=== PATIENT | male | born 1950 | race Caucasian/White ===

== ENCOUNTER → 2018-02-20 | Outpatient (CLI) | payer MEDICARE ==
--- NOTE | 2018-02-20 07:59 | US ---
EXAMINATION TYPE: US duplex aorta DATE OF EXAM: 02/20/2018 COMPARISON: NONE CLINICAL HISTORY: Z13.6 Screening for cardiovascular disease. controlled HTN EXAM MEASUREMENTS: Exam is technically limited by overlying bowel gas and large body habitus. Abdominal Aorta: Proximal: 2.9cm A/P by 2.5 cm transversely. Mid: 2.1cm A/P by 2.1 cm transversely Distal: 2.1cm A/P by 2.0 cm transversely Bifurcation: 1.5cm Transverse Right SHARMIN; 1.4cm Transverse Left SHARMIN Aorta is scanned through the bifurcation without aneurysmal change. IMPRESSION: No ultrasound evidence for greater than 3 cm abdominal aortic aneurysm.
== END | disposition home or self-care (01) ==
LOC: RADUSWWP 07:18
PROVIDERS: ATTEND Family Medicine
DX: Z13.6 Encounter for screening for cardiovascular disorders (principal)
CPT/HCPCS: 93979

== ENCOUNTER → 2018-03-05 | Outpatient (CLI) | payer MEDICARE ==
--- NOTE | 2018-03-05 11:03 | CTL ---
EXAMINATION TYPE: CT Low Dose Lung DATE OF EXAM ORDERED: 03/05/2018 HISTORY: Long-term tobacco use. Lung cancer screening CT DLP: 138.[address] CTDI: 4.2 mGy Automated exposure control for dose reduction was used. SCREENING VISIT: Initial screening study. COMPARISON: None TECHNIQUE: Low dose computed tomography scan was performed through the chest at 1 mm thick sections a nd reconstructed images in the coronal plane at [address] DIAGNOSTIC QUALITY: Satisfactory FINDINGS: LUNG NODULES: None. Few scattered micronodules measuring under 3 mm in size LUNGS: COPD: Severity: Mild Fibrosis: Severity: Mild bibasilar linear scarring Lymph nodes: No greater than 1 cm adenopathy Other findings: None BILATERAL PLEURAL SPACE: Effusion: None Calcification: None Thickening: None Pneumothorax: None HEART: Heart Size: Normal Coronary calcification: Moderate to severe 3 vessel Pericardial effusion: None OTHER FINDINGS: Upper abdomen: None Bony thorax: Mild multilevel spurring. Slight S-shaped scoliosis. Supraclavicular region: No suspicious finding. Other: None IMPRESSION: No suspicious nodules. FOLLOW UP CT CHEST RECOMMENDATION: Annual low-dose lung screening CT. Moderate to severe coronary art jeanne calcification noted. Correlate clinically with additional cardiovascular risk factors. CT LUNG RAD: Lung-Rad 1 Negative
== END | disposition home or self-care (01) ==
LOC: RADCTMAIN 07:34
PROVIDERS: ATTEND Family Medicine
DX: Z09 Encounter for follow-up examination after completed treatment for conditions other than malignant neoplasm (principal); Z87.891 Personal history of nicotine dependence

== ENCOUNTER 2018-07-14 15:16 | Inpatient (IN) | payer MEDICARE ==
[2018-07-14] MEDS ORDERED: SODIUM CHLORIDE 0.9% 1,000 ML IV STA (16:59)
[2018-07-14] MEDS ORDERED: ASPIRIN 81 MG PO STA (16:59)
--- NOTE | 2018-07-14 17:03 | ED ---
General Adult HPI - General Chief complaint: Recheck/Abnormal Lab/Rx Stated complaint: Dizziness Time Seen by Provider: 07/14/18 16:51 Source: patient, family, RN notes reviewed Mode of arrival: wheelchair Limitations: no limitations - History of Present Illness Initial comments: Patient is a pleasant 68-year-old male presenting to the emergency department for lightheadedness. Patient states he was an appointment today and have blood work done and was lightheaded. Blood pressure went down. Patient was noticed to have EKG changes and was advised to come to the emergency department. Patient denies ever having chest discomfort or dyspnea. Patient states symptoms are mild at this point. Patient has been experiencing anorexia recently and his doctor's planning on working that up in the near future - Related Data Home Medications Medication Instructions Recorded Confirmed Cholecalciferol [Vitamin D3] 5,000 unit PO DAILY 05/31/15 07/14/18 Anastrozole [Arimidex] 1 mg PO MOWEFR 07/14/18 07/14/18 Furosemide [Lasix] 40 mg PO DAILY 07/14/18 07/14/18 HYDROcodone/APAP 7.5-325MG [[place] 1 tab PO Q6H PRN 07/14/18 07/14/18 7.5-325] Lisinopril-Hctz 10-12.5 mg 1 tab PO DAILY 07/14/18 07/14/18 [Zestoretic 10-12.5] Naproxen Sodium 550 mg PO Q12H 07/14/18 07/14/18 Previous Rx's Medication Instructions Recorded Aspirin 81 mg PO DAILY #1 chewable 06/04/15 Metoprolol Tartrate [Lopressor] 25 mg PO TID #90 tab 06/04/15 Spironolactone [Aldactone] 25 mg PO DAILY #30 tab 06/04/15 Allergies Allergy/AdvReac Type Severity Reaction Status Date / Time No Known Allergies Allergy Verified 07/14/18 17:11 Review of Systems ROS Statement: Those systems with pertinent positive or pertinent negative responses have been documented in the HPI. ROS Other: All systems not noted in ROS Statement are negative. Constitutional: Denies: fever Eyes: Denies: eye pain ENT: Denies: ear pain Respiratory: Denies: cough, dyspnea Cardiovascular: Denies: chest pain Endocrine: Denies: heat or cold intolerance Gastrointestinal: Denies: vomiting Genitourinary: Denies: dysuria Musculoskeletal: Denies: back pain Skin: Denies: rash Neurological: Denies: weakness Past Medical History Past Medical History: Atrial Fibrillation, Heart Failure, COPD, Hypertension, Musculoskeletal Disorder, Osteoarthritis (OA) Additional Past Medical History / Comment(s): chronic lower back pain, herniated disc. History of Any Multi-Drug Resistant Organisms: None Reported Past Surgical History: Appendectomy, Heart Catheterization, Orthopedic Surgery Additional Past Surgical History / Comment(s): shattered lt ankle(hardware removed), vasectomtomy, colonoscopy w/polyps removed. Past Anesthesia/Blood Transfusion Reactions: No Reported Reaction Additional Past Anesthesia/Blood Transfusion Reaction / Comment(s): claustrophobic. Past Psychological History: No Psychological Hx Reported Smoking Status: Current every day smoker Past Alcohol Use History: None Reported Past Drug Use History: None Reported - Past Family History Father Family Medical History: Myocardial Infarction (DC) Additional Family Medical History / Comment(s): at age 86 Mother Family Medical History: Cancer, Congestive Heart Failure (CHF), Diabetes Mellitus, Myocardial Infarction (DC), Pneumonia Additional Family Medical History / Comment(s): at age 59 General Exam Limitations: no limitations General appearance: alert, in no apparent distress Head exam: Present: atraumatic Eye exam: Present: normal appearance, PERRL ENT exam: Present: normal oropharynx Neck exam: Present: normal inspection Respiratory exam: Present: normal lung sounds bilaterally. Absent: chest wall tenderness Cardiovascular Exam: Present: irregular rhythm Expanded Peripheral pulses: 2+: Radial (R), Radial (L), Posterior Tibialis (R), Posterior Tibialis (L) GI/Abdominal exam: Present: soft. Absent: distended, tenderness Extremities exam: Present: normal inspection. Absent: pedal edema, calf tenderness Neurological exam: Present: alert Psychiatric exam: Present: normal affect, normal mood Skin exam: Present: normal color Course Vital Signs 07/14/18 07/14/18 16:19 16:59 Temperature 97.7 F Pulse Rate 76 90 Respiratory 16 18 Rate Blood Pressure 71/50 93/57 O2 Sat by Pulse 97 99 Oximetry EKG Findings - EKG Comments: EKG Findings:: Normal sinus rhythm at 77. CT 178. QRS 128. QT 392. QTC 443. Normal axis. Right bundle branch block. Inferior T wave inversion. There is also T wave inversion leads V3 through V4. Medical Decision Making - Medical Decision Making Patient reevaluated and resting comfortably in bed. Patient and family updated on results and plan. Case was discussed in detail with Dr. Cohen, who will admit covering for Dr. casarez, who admits for Dr. Coronel. Patient states she has been told there is been some borderline hyponatremia in the past. - Lab Data Result diagrams: 07/14/18 16:50 07/14/18 16:50 Lab Results 07/14/18 07/14/18 07/14/18 Range/Units 16:50 16:50 16:50 WBC 10.5 (3.8-10.6) k/uL RBC 4.87 (4.30-5.90) m/uL Hgb 14.5 (13.0-17.5) gm/dL Hct 43.6 (39.0-53.0) % MCV 89.6 (80.0-100.0) fL MCH 29.8 (25.0-35.0) pg MCHC 33.2 (31.0-37.0) g/dL RDW 13.2 (11.5-15.5) % Plt Count 353 (150-450) k/uL Neutrophils % 79 % Lymphocytes % 10 % Monocytes % 9 % Eosinophils % 1 % Basophils % 0 % Neutrophils # 8.3 H (1.3-7.7) k/uL Lymphocytes # 1.0 (1.0-4.8) k/uL Monocytes # 1.0 (0-1.0) k/uL Eosinophils # 0.1 (0-0.7) k/uL Basophils # 0.0 (0-0.2) k/uL PT (9.0-12.0) sec INR (<1.2) APTT (22.0-30.0) sec Sodium 119 L* (137-145) mmol/L Potassium 5.0 (3.5-5.1) mmol/L Chloride 79 L* (98-107) mmol/L Carbon Dioxide 26 (22-30) mmol/L Anion Gap 14 mmol/L BUN 42 H (9-20) mg/dL Creatinine 1.20 (0.66-1.25) mg/dL Est GFR (CKD-EPI)AfAm 71 (>60 ml/min/1.73 sqM) Est GFR (CKD-EPI)NonAf 62 (>60 ml/min/1.73 sqM) Glucose 98 (74-99) mg/dL Calcium 10.2 (8.4-10.2) mg/dL Magnesium 1.9 (1.6-2.3) mg/dL Total Bilirubin 0.9 (0.2-1.3) mg/dL AST 25 (17-59) U/L ALT 31 (21-72) U/L Alkaline Phosphatase 63 (38-126) U/L Total Creatine Kinase 77 (55-170) U/L CK-MB (CK-2) 1.8 (0.0-2.4) ng/mL CK-MB (CK-2) Rel Index 2.3 Troponin I <0.012 (0.000-0.034) ng/mL Total Protein 7.0 (6.3-8.2) g/dL Albumin 4.5 (3.5-5.0) g/dL 07/14/18 Range/Units 16:50 WBC (3.8-10.6) k/uL RBC (4.30-5.90) m/uL Hgb (13.0-17.5) gm/dL Hct (39.0-53.0) % MCV (80.0-100.0) fL MCH (25.0-35.0) pg MCHC (31.0-37.0) g/dL RDW (11.5-15.5) % Plt Count (150-450) k/uL Neutrophils % % Lymphocytes % % Monocytes % % Eosinophils % % Basophils % % Neutrophils # (1.3-7.7) k/uL Lymphocytes # (1.0-4.8) k/uL Monocytes # (0-1.0) k/uL Eosinophils # (0-0.7) k/uL Basophils # (0-0.2) k/uL PT 9.8 (9.0-12.0) sec INR 1.0 (<1.2) APTT 23.5 (22.0-30.0) sec Sodium (137-145) mmol/L Potassium (3.5-5.1) mmol/L Chloride (98-107) mmol/L Carbon Dioxide (22-30) mmol/L Anion Gap mmol/L BUN (9-20) mg/dL Creatinine (0.66-1.25) mg/dL Est GFR (CKD-EPI)AfAm (>60 ml/min/1.73 sqM) Est GFR (CKD-EPI)NonAf (>60 ml/min/1.73 sqM) Glucose (74-99) mg/dL Calcium (8.4-10.2) mg/dL Magnesium (1.6-2.3) mg/dL Total Bilirubin (0.2-1.3) mg/dL AST (17-59) U/L ALT (21-72) U/L Alkaline Phosphatase (38-126) U/L Total Creatine Kinase (55-170) U/L CK-MB (CK-2) (0.0-2.4) ng/mL CK-MB (CK-2) Rel Index Troponin I (0.000-0.034) ng/mL Total Protein (6.3-8.2) g/dL Albumin (3.5-5.0) g/dL - Radiology Data Radiology results: image reviewed (Chest x-ray shows no acute process) Disposition Clinical Impression: Hyponatremia Disposition: ADMITTED IP TO THIS HOSP Is patient prescribed a controlled substance at d/c from ED?: No Referrals: Johan Coronel MD [Primary Care Provider] - 1-2 days Decision Time: 17:40
[2018-07-14 17:10] LABS: Basophils % (A) 0 %; Eosinophils # (A) 0.1 k/uL (0-0.7); Eosinophils % (A) 1 %; HCT 43.6 % (39.0-53.0); HGB 14.5 gm/dL (13.0-17.5); Lymphocytes % (A) 10 %; MCH 29.8 pg (25.0-35.0); MCHC 33.2 g/dL (31.0-37.0); MCV 89.6 fL (80.0-100.0); Mean Platelet Volume 6.7; Monocytes % (A) 9 %; Neutrophils # (A) 8.3 k/uL (1.3-7.7); Neutrophils % (A) 79 %; Platelet Count 353 k/uL (150-450); RBC 4.87 m/uL (4.30-5.90); RDW 13.2 % (11.5-15.5); WBC 10.5 k/uL (3.8-10.6)
[2018-07-14 17:19] LABS: Albumin 4.5 g/dL (3.5-5.0); Calcium 10.2 mg/dL (8.4-10.2); Magnesium 1.9 mg/dL (1.6-2.3); Total Bilirubin 0.9 mg/dL (0.2-1.3)
[2018-07-14 17:20] LABS: Partial Thromboplastin Time 23.5 sec (22.0-30.0); Prothrombin Time 9.8 sec (9.0-12.0)
[2018-07-14 17:22] LABS: Creatine Kinase 77 U/L (55-170)
[2018-07-14 17:35] LABS: Creatine Kinase MB 1.8 ng/mL (0.0-2.4); Troponin I <0.012 ng/mL (0.000-0.034)
--- NOTE | 2018-07-14 17:36 | XR ---
EXAMINATION TYPE: XR chest 2V DATE OF EXAM: 07/14/2018 COMPARISON: 05/31/2015 HISTORY: Abnormal cardiogram TECHNIQUE: Frontal and lateral views of the chest are obtained. FINDINGS: Heart is normal. Lungs are clear of consolidation. There is no heart failure. There are ch est leads. There is no pleural effusion. Bony thorax is intact. IMPRESSION: No active cardiopulmonary disease. No change.
[2018-07-14] MEDS ORDERED: SODIUM CHLORIDE 0.9% 500 ML IV STA (17:40)
[2018-07-14] MEDS ORDERED: NALOXONE 0.4 MG/ML 1 ML VIAL IV PRN (17:41)
[2018-07-14 19:23] LABS: Calcium 9.8 mg/dL (8.4-10.2); Potassium 5.1 mmol/L (3.5-5.1); Total Bilirubin 0.8 mg/dL (0.2-1.3); Total Protein 6.3 g/dL (6.3-8.2)
[2018-07-14] MEDS: PANTOPRAZOLE 40 MG/10 ML VIAL IV SCH (21:50)
[2018-07-14] MEDS: SODIUM CHLORIDE 0.9% 1,000 ML IV SCH (21:50)
[2018-07-14] MEDS ORDERED: IPRATROPIUM-ALBUTEROL 3 ML NEB INHALATION PRN (22:34)
--- NOTE | 2018-07-14 22:49 | P.HPIM ---
History of Present Illness H&P Date: 07/14/18 Chief Complaint: Presyncope 68 year old male with history of congestive heart failure with left ventricular ejection fraction of 4045 percent, patient was feeling at his baseline recently where he described it as feeling well. he went to his doctor office today for routine visit and blood work after he was leaving the office he felt a little woozy and lightheaded, he did not fall or pass out, his blood pressure was checked and was found to be hypotensive, his doctor recommended for him to go to the hospital. Patient drove the patient to our emergency department for further evaluation. Patient despite all that continues to deny any chest pain, shortness of breath, heart racing, nausea or vomiting, abdominal pain, headache, changes in his vision or hearing, changes in his speech, denies any focal neurologic deficits. Patient denies any leg swelling, changes in his urinary habits or bowel habits. Patient denies any GI bleeding. Patient reports history of chronic hyponatremia however he is not sure how low his his sodium. He reports that this been going on for at least 6 months and his doctor has been investigating causes. He reports that his doctor recommended to him to increase his salt intake. Patient reports history of irregular heartbeat in 2013 without a diagnosis of A. fib, patient is not on any blood thinners, he follows up with cardiology, history of left heart cath few years ago that was reported to him to be unremarkable. Patient list of medications showed anastrozole that the patient could not recognize and is not aware that he's taking this medicine. His electronic medical records shows 3 refills since April of this year Patient reports early satiety over the past 6 months, his doctor recommended for him to get an upper endoscopy EGD done. Patient has not had that test done yet. Patient thinks that this is related to the metformin and other oral hypoglycemics that he has been trying around to help regulate his blood sugar. He denies any diagnoses of diabetes mellitus Review of Systems Pertinent positives as noted in HPI. All other systems were reviewed and are negative Past Medical History Past Medical History: Atrial Fibrillation, Heart Failure, COPD, Hypertension, Musculoskeletal Disorder, Osteoarthritis (OA) Additional Past Medical History / Comment(s): chronic lower back pain, herniated disc. History of Any Multi-Drug Resistant Organisms: None Reported Past Surgical History: Appendectomy, Heart Catheterization, Orthopedic Surgery Additional Past Surgical History / Comment(s): shattered lt ankle(hardware removed), vasectomtomy, colonoscopy w/polyps removed. Past Anesthesia/Blood Transfusion Reactions: No Reported Reaction Additional Past Anesthesia/Blood Transfusion Reaction / Comment(s): claustrophobic. Past Psychological History: No Psychological Hx Reported Smoking Status: Current every day smoker Past Alcohol Use History: None Reported Past Drug Use History: None Reported - Past Family History Father Family Medical History: Myocardial Infarction (SD) Additional Family Medical History / Comment(s): at age 86 Mother Family Medical History: Cancer, Congestive Heart Failure (CHF), Diabetes Mellitus, Myocardial Infarction (SD), Pneumonia Additional Family Medical History / Comment(s): at age 59 Medications and Allergies Home Medications Medication Instructions Recorded Confirmed Type Cholecalciferol [Vitamin D3] 5,000 unit PO DAILY 05/31/15 07/14/18 History Aspirin 81 mg PO DAILY #1 chewable 06/04/15 07/14/18 Rx Metoprolol Tartrate [Lopressor] 25 mg PO TID #90 tab 06/04/15 07/14/18 Rx Spironolactone [Aldactone] 25 mg PO DAILY #30 tab 06/04/15 07/14/18 Rx Anastrozole [Arimidex] 1 mg PO MOWEFR 07/14/18 07/14/18 History Furosemide [Lasix] 40 mg PO DAILY 07/14/18 07/14/18 History HYDROcodone/APAP 7.5-325MG [[place] 1 tab PO Q6H PRN 07/14/18 07/14/18 History 7.5-325] Lisinopril-Hctz 10-12.5 mg 1 tab PO DAILY 07/14/18 07/14/18 History [Zestoretic 10-12.5] Naproxen Sodium 550 mg PO Q12H 07/14/18 07/14/18 History Allergies Allergy/AdvReac Type Severity Reaction Status Date / Time No Known Allergies Allergy Verified 07/14/18 17:11 Physical Exam Vitals: Vital Signs Temp Pulse Resp BP Pulse Ox 07/14/18 20:07 92 18 119/82 96 07/14/18 18:42 108 H 18 101/77 98 07/14/18 16:59 90 18 93/57 99 07/14/18 16:19 97.7 F 76 16 71/50 97 Intake and Output 07/14/18 07/14/18 07/14/18 06:59 14:59 22:59 Other: Weight 108.862 kg Constitutional: No acute distress, conversant, pleasant Eyes: Anicteric sclerae, moist conjunctiva, no lid-lag Pupils equal round reactive to light ENMT: NC/AT Oropharynx clear, no erythema, exudates Neck: Supple, FROM, no masses, or JVD No carotid bruits No thyromegaly Lungs: Decreased breath sounds throughout her lungs expiratory phase, no wheezing Clear to percussion Normal respiratory effort, no accessory muscle use Cardiovascular: Heart regular in rate and rhythm, No murmurs, gallops, or rubs No peripheral edema Abdominal: Soft Nontender, no guarding, rebound or rigidity Abdomen moving with respiration Normoactive bowel sounds No hepatomegaly, No splenomegaly No palpable mass No abdominal wall hernia noted Skin: Normal temperature, tone, texture, turgor No induration No subcutaneous nodules No rash, lesions No ulcers Extremities: No digital cyanosis No clubbing Pedal pulses intact and symmetrical Radial pulses intact and symmetrical No calf tenderness Psychiatric: Alert and oriented to person, place and time Appropriate affect fair judgment Neuro Muscles Strength 5/5 in all 4 extremities Sensation to light touch grossly present throughout Cranial nerves II-XII grossly intact No focal sensory deficits Lymphatics: no palpable cervical or supraclavicular , or inguinal lymph nodes Results CBC & Chem 7: 07/14/18 16:50 07/14/18 18:55 Labs: Abnormal Lab Results - Last 24 Hours (Table) 07/14/18 07/14/18 07/14/18 Range/Units 16:50 16:50 18:55 Neutrophils # 8.3 H (1.3-7.7) k/uL Sodium 119 L* 119 L* (137-145) mmol/L Chloride 79 L* 80 L* (98-107) mmol/L BUN 42 H 41 H (9-20) mg/dL Assessment and Plan Assessment: 68 year old male with history of congestive heart failure with left ventricular ejection fraction of 4045 percent, patient was feeling at his baseline he went to his doctor office today for routine visit and blood work after he was leaving the office he felt a little woozy and lightheaded, he did not fall or pass out, his blood pressure was checked and was found to be hypotensive, his doctor recommended for him to go to the hospital. Patient drove the patient to our emergency department for further evaluation. Patient is admitted as an inpatient with anticipated length of stay of more than 48 hours, due to findings of severe hyponatremia, T-wave inversions on his EKG, for further workup and evaluation. Plan: Presyncope, with hypotension , possibly due to dehydration dehydration Hypotension Acute/Chronic hyponatremia Chronic systolic congestive heart failure, compensated CAD History of Irregular heart beat history of Hypertension COPD compensated Obesity tobacco smoking DVT prophylaxis on heparin sc TID Patient received IV fluids boluses with normal saline, his blood work suggested elements of dehydration Oral diuretics are on hold for now Hold ERICKA inhibitor due to hypotension Continue with metoprolol Follow-up electrolytes Patient claims to have chronic hyponatremia however levels are not known Cardiology consult to evaluate T-wave inversions, patient recently had low-dose CAT scan of the chest suggested coronary artery disease nicotine replacment therapy offered, counseled to quit smoking Raf PRN Patient is on Anistrazole, he is not aware of this medication, but medication list showing that he had 3 refils since april Surrogate decision-maker: patients Karyn CODE STATUS: full code Discussed with: Patient, ER, RN, medical technologist clinical Anticipated discharge: 48-[address]: home A total of 70 minutes was spent on the care of this complex patient more than 50 % of the time was spent in counseling and care coordination.
[2018-07-14] MEDS: HEPARIN SODIUM,PORCINE 5,000 UNIT/ML 1 ML VIAL SQ SCH (23:16)
[2018-07-14 23:21] LABS: Creatine Kinase MB 1.9 ng/mL (0.0-2.4); Troponin I 0.015 ng/mL (0.000-0.034)
[2018-07-14] MEDS: HYDROcodone/APAP 7.5-325MG 1 EACH TAB PO PRN (23:23)
[2018-07-14] MEDS: METOPROLOL TARTRATE 25 MG TAB PO SCH (23:23)
[2018-07-15 00:08] LABS: Calcium 9.6 mg/dL (8.4-10.2); Potassium 4.9 mmol/L (3.5-5.1)
[2018-07-15] MEDS: SODIUM CHLORIDE 0.9% 1,000 ML IV SCH ×2 (02:57→20:27)
[2018-07-15 05:51] LABS: Creatine Kinase 196 U/L (55-170)
[2018-07-15 06:02] LABS: ALT 30 U/L (21-72); AST 29 U/L (17-59); Albumin 3.9 g/dL (3.5-5.0); Alkaline Phosphatase 61 U/L (38-126); Anion Gap 12 mmol/L; Blood Urea Nitrogen 32 mg/dL (9-20); Calcium 9.7 mg/dL (8.4-10.2); Carbon Dioxide 24 mmol/L (22-30); Chloride 83 mmol/L (98-107); Cholesterol 143 mg/dL (<200); Glucose 96 mg/dL (74-99); HDL Cholesterol 35 mg/dL (40-60); LDL Cholesterol,Calculated 84 mg/dL (0-99); Potassium 4.9 mmol/L (3.5-5.1); Total Protein 6.3 g/dL (6.3-8.2); Triglycerides 119 mg/dL (<150)
[2018-07-15 06:10] LABS: Sodium 119 mmol/L (137-145)
[2018-07-15 06:11] LABS: Glucose,Whole Blood 120 mg/dL (75-99)
[2018-07-15 06:12] LABS: Creatine Kinase MB 3.2 ng/mL (0.0-2.4)
[2018-07-15] MEDS: NICOTINE 14MG/24HR PATCH TRANSDERM SCH ×2 (08:53→19:43)
[2018-07-15] MEDS: CHOLECALCIFEROL 1,000 UNIT TAB PO SCH (08:54)
[2018-07-15] MEDS: PANTOPRAZOLE 40 MG/10 ML VIAL IV SCH (08:54)
[2018-07-15] MEDS: METOPROLOL TARTRATE 25 MG TAB PO SCH ×3 (08:54→23:12)
[2018-07-15] MEDS: ASPIRIN 81 MG PO SCH (08:54)
[2018-07-15] MEDS: HEPARIN SODIUM,PORCINE 5,000 UNIT/ML 1 ML VIAL SQ SCH ×2 (08:55→15:49)
[2018-07-15] MEDS: HYDROcodone/APAP 7.5-325MG 1 EACH TAB PO PRN ×2 (08:59→18:56)
--- NOTE | 2018-07-15 10:19 | P.CRDCN ---
History of Present Illness Consult date: 07/15/18 Requesting physician: Estefani Degroot Consult reason: hypotension Chief complaint: Near syncope, hypotension History of present illness: This is a 68-year-old gentleman who follows with Dr. Garcia in the office. His primary care doctor is Dr. Coronel. Patient has history of hypertension, COPD, nicotine dependence, recently diagnosed with diabetes, denies any hyperlipidemia, recovering alcoholic, who presents to the hospital with symptoms of lightheadedness and near-syncope, he out like he may pass out. He was in the doctor's office when these symptoms started, they checked his blood pressure there which was noted to be significantly low. According to the patient, he was recently tried on metformin, had several episodes of vomiting, they changed him to extended release metformin he had the same symptoms, then the patient was started on Januvia and according to him and his he again had some episodes of vomiting. Patient has been having some issues recently with very decreased appetite, and episodes of vomiting. He is also known to run low sodium levels, however recently it has been noted that his sodium is running a much lower than usual. According to the patient, he has also been told to have a history of irregular heartbeat in the past, also underwent cardiac catheterization which according to the patient was unremarkable. Telemetry strips shows sinus rhythm with frequent PACs. We will get Dr. Garcia' s office note to review all of these things. Cardiology was primarily consult because of hypotension and near syncope. Chest x-ray on admission did not reveal any acute cardiopulmonary disease. EKG shows normal sinus rhythm with a right bundle branch block pattern and nonspecific ST-T wave changes. I pressure on arrival here 70/50 with a heart rate in the 70s, 97% on room air. Let pressure this morning 126/80 with a heart rate in the 70s, 93% on room air. White blood cell count is normal, hemoglobin 14.5, platelet count 353. Sodium level 119 on admission, 119 this morning, potassium 4.9, BUN 32, creatinine 0.9. Magnesium level I.9. TSH level I.8. Troponin 0.012, 0.015, 0.017. At the time of my examination this morning, patient states she's been up ambulating in the hallway, denies any dizziness or lightheadedness. Currently receiving 0.9 normal saline at 75 mL per hour. Past Medical History Past Medical History: Atrial Fibrillation, Heart Failure, COPD, Hypertension, Musculoskeletal Disorder, Osteoarthritis (OA) Additional Past Medical History / Comment(s): chronic lower back pain, herniated disc. History of Any Multi-Drug Resistant Organisms: None Reported Past Surgical History: Appendectomy, Heart Catheterization, Orthopedic Surgery Additional Past Surgical History / Comment(s): shattered lt ankle(hardware removed), vasectomtomy, colonoscopy w/polyps removed. Past Anesthesia/Blood Transfusion Reactions: No Reported Reaction Additional Past Anesthesia/Blood Transfusion Reaction / Comment(s): claustrophobic. Past Psychological History: No Psychological Hx Reported Smoking Status: Current every day smoker Past Alcohol Use History: None Reported Past Drug Use History: None Reported - Past Family History Father Family Medical History: Myocardial Infarction ([place]) Additional Family Medical History / Comment(s): at age 86 Mother Family Medical History: Cancer, Congestive Heart Failure (CHF), Diabetes Mellitus, Myocardial Infarction ([place]), Pneumonia Additional Family Medical History / Comment(s): at age 59 Medications and Allergies Home Medications Medication Instructions Recorded Confirmed Type Cholecalciferol [Vitamin D3] 5,000 unit PO DAILY 05/31/15 07/14/18 History Aspirin 81 mg PO DAILY #1 chewable 06/04/15 07/14/18 Rx Metoprolol Tartrate [Lopressor] 25 mg PO TID #90 tab 06/04/15 07/14/18 Rx Spironolactone [Aldactone] 25 mg PO DAILY #30 tab 06/04/15 07/14/18 Rx Anastrozole [Arimidex] 1 mg PO [id number] 07/14/18 07/14/18 History Furosemide [Lasix] 40 mg PO DAILY 07/14/18 07/14/18 History HYDROcodone/APAP 7.5-325MG [Durant 1 tab PO Q6H PRN 07/14/18 07/14/18 History 7.5-325] Lisinopril-Hctz 10-12.5 mg 1 tab PO DAILY 07/14/18 07/14/18 History [Zestoretic 10-12.5] Naproxen Sodium 550 mg PO Q12H 07/14/18 07/14/18 History Allergies Allergy/AdvReac Type Severity Reaction Status Date / Time No Known Allergies Allergy Verified 07/14/18 17:11 Physical Exam Vitals: Vital Signs Temp Pulse Pulse Resp BP BP Pulse Ox 07/15/18 08:50 98 F 71 18 126/80 93 L 07/15/18 04:00 97.5 F L 63 18 105/77 95 07/15/18 00:00 97.2 F L 107 H 18 128/84 96 07/14/18 23:00 119/67 07/14/18 22:15 94/67 07/14/18 22:07 88/53 07/14/18 21:51 97.4 F L 90 18 88/56 94 L 07/14/18 20:07 92 18 119/82 96 07/14/18 18:42 108 H 18 101/77 98 07/14/18 16:59 90 18 93/57 99 07/14/18 16:19 97.7 F 76 16 71/50 97 Intake and Output 07/14/18 07/15/18 07/15/18 22:59 06:59 14:59 Intake Total 600 230 Balance 600 230 Intake: IV 600 Sodium Chloride 0.9% 1, 600 000 ml @ 75 mls/hr IV . [id number] NETO Rx#:[id number] Oral 230 Other: Weight 108.862 kg 109.5 kg PHYSICAL EXAMINATION: GENERAL: 68-year-old gentleman in no acute distress at the time of my examination HEENT: Head is atraumatic, normocephalic. Pupils equal, round. Sclera anicteric. Conjunctiva are clear. Mucous membranes of the mouth are moist. Neck is supple. There is no elevated jugular venous pressure. No carotid bruit is heard. HEART EXAMINATION: Heart S1, S2 normal. No murmur or gallop heard. CHEST EXAMINATION: Lungs are clear to auscultation and precussion. No chest wall tenderness is noted on palpation or with deep breathing. ABDOMEN: Soft, nontender. Bowel sounds are heard. No organomegaly noted. EXTREMITIES: 2+ peripheral pulses with no evidence of peripheral edema and no calf tenderness noted. NEUROLOGIC patient is awake, alert and oriented X3. . Results 07/14/18 16:50 07/15/18 05:25 Cardiac Enzymes 07/14/18 07/14/18 07/14/18 Range/Units 16:50 16:50 18:55 AST 25 24 (17-59) U/L CK-MB (CK-2) 1.8 (0.0-2.4) ng/mL Troponin I <0.012 (0.000-0.034) ng/mL 07/14/18 07/15/18 07/15/18 Range/Units 22:28 05:25 05:25 AST 29 (17-59) U/L CK-MB (CK-2) 1.9 3.2 H* (0.0-2.4) ng/mL Troponin I 0.015 (0.000-0.034) ng/mL 07/15/18 Range/Units 06:26 AST (17-59) U/L CK-MB (CK-2) (0.0-2.4) ng/mL Troponin I 0.017 (0.000-0.034) ng/mL Coagulation 07/14/18 Range/Units 16:50 PT 9.8 (9.0-12.0) sec APTT 23.5 (22.0-30.0) sec Lipids 07/15/18 Range/Units 05:25 Triglycerides 119 (<150) mg/dL Cholesterol 143 (<200) mg/dL HDL Cholesterol 35 L (40-60) mg/dL CBC 07/14/18 Range/Units 16:50 WBC 10.5 (3.8-10.6) k/uL RBC 4.87 (4.30-5.90) m/uL Hgb 14.5 (13.0-17.5) gm/dL Hct 43.6 (39.0-53.0) % Plt Count 353 (150-450) k/uL Comprehensive Metabolic Panel 07/14/18 07/14/18 07/14/18 Range/Units 16:50 18:55 23:28 Sodium 119 L* 119 L* 118 L* (137-145) mmol/L Potassium 5.0 5.1 4.9 (3.5-5.1) mmol/L Chloride 79 L* 80 L* 83 L (98-107) mmol/L Carbon Dioxide 26 29 25 (22-30) mmol/L BUN 42 H 41 H 36 H (9-20) mg/dL Creatinine 1.20 1.10 1.01 (0.66-1.25) mg/dL Glucose 98 92 92 (74-99) mg/dL Calcium 10.2 9.8 9.6 (8.4-10.2) mg/dL AST 25 24 (17-59) U/L ALT 31 28 (21-72) U/L Alkaline Phosphatase 63 58 (38-126) U/L Total Protein 7.0 6.3 (6.3-8.2) g/dL Albumin 4.5 4.0 (3.5-5.0) g/dL 07/15/18 Range/Units 05:25 Sodium 119 L* (137-145) mmol/L Potassium 4.9 (3.5-5.1) mmol/L Chloride 83 L (98-107) mmol/L Carbon Dioxide 24 (22-30) mmol/L BUN 32 H (9-20) mg/dL Creatinine 0.95 (0.66-1.25) mg/dL Glucose 96 (74-99) mg/dL Calcium 9.7 (8.4-10.2) mg/dL AST 29 (17-59) U/L ALT 30 (21-72) U/L Alkaline Phosphatase 61 (38-126) U/L Total Protein 6.3 (6.3-8.2) g/dL Albumin 3.9 (3.5-5.0) g/dL Current Medications Generic Name Dose Route Start Last Admin Trade Name Freq PRN Reason Stop Dose Admin Hydrocodone Bitart/Acetaminophen 1 each 07/14/18 23:19 07/15/18 08:59 [place] 7.5-325 PO 1 each Q6H PRN Administration Pain Albuterol/Ipratropium 3 ml 07/14/18 22:34 Duoneb 0.5 Mg-3 Mg/3 Ml Soln INHALATION RT-QID PRN Shortness Of Breath Or Wheezing Aspirin 81 mg 07/15/18 09:00 07/15/18 08:54 Aspirin PO 81 mg DAILY NETO Administration Cholecalciferol 5,000 unit 07/15/18 09:00 07/15/18 08:54 Vitamin D3 PO 5,000 unit DAILY NETO Administration Heparin Sodium (Porcine) 5,000 unit 07/15/18 00:00 07/15/18 08:55 Heparin SQ 5,000 unit Q8HR NETO Administration Sodium Chloride 1,000 mls @ 75 mls/hr 07/14/18 17:45 08/21/18 02:57 Saline 0.9% IV Not Given .[id number] NETO Metoprolol Tartrate 25 mg 07/14/18 23:00 07/15/18 08:54 Lopressor PO 25 mg TID NETO Administration Naloxone HCl 0.2 mg 07/14/18 17:41 Narcan IV Q2M PRN Opioid Reversal Nicotine 1 patch 07/15/18 09:00 07/15/18 08:53 Habitrol 14mg/24hr Patch TRANSDERM 1 patch DAILY NETO Administration Pantoprazole Sodium 40 mg 07/14/18 17:45 07/15/18 08:54 Protonix IV 40 mg DAILY NETO Administration Intake and Output 07/14/18 07/15/18 07/15/18 22:59 06:59 14:59 Intake Total 600 230 Balance 600 230 Intake: IV 600 Sodium Chloride 0.9% 1, 600 000 ml @ 75 mls/hr IV . [id number] NETO Rx#:[id number] Oral 230 Other: Weight 108.862 kg 109.5 kg 07/14/18 16:50 07/15/18 05:25 EKG Interpretations (text) EKG shows a normal sinus rhythm with a right bundle branch block pattern and nonspecific ST-T wave changes Assessment and Plan Plan: Assessment and plan #1 symptoms of lightheadedness and near syncope, likely secondary to hypotension. #2 acute on chronic hyponatremia #3 hypertension #4 COPD #5 obesity #6 nicotine dependence #7 recent decreased appetite and episodes of vomiting #8 recent diagnosis of diabetes, currently on Januvia Plan We will obtain an echocardiogram with Doppler study. Patient did have an echocardiogram with Doppler study performed here in 2015 which revealed an ejection fraction of 40-45% mild to moderate mitral regurgitation. We will obtain office records, continue metoprolol, Aldactone, Zestoretic, Lasix, currently being placed on hold. Further recommendations to follow. DNP note has been reviewed, I agree with a documented findings and plan of care. Patient was seen and examined.
[2018-07-15 12:17] LABS: Glucose,Whole Blood 119 mg/dL (75-99)
[2018-07-15 13:10] LABS: Hemoglobin A1C 6.1 % (4.0-6.0)
--- NOTE | 2018-07-15 13:21 | P.PN ---
Subjective Progress Note Date: 07/15/18 Principal diagnosis: Presyncope Doing well, no complaints. No overnight issues. No further episodes of dizziness or syncope. No chest pain or shortness of breath. Objective - Vital Signs Vital signs: Vital Signs Temp 98 F 07/15/18 08:50 Pulse 71 07/15/18 08:50 Resp 18 07/15/18 08:50 BP 126/80 07/15/18 08:50 Pulse Ox 93 L 07/15/18 08:50 Intake & Output 07/14/18 07/15/18 07/15/18 18:59 06:59 18:59 Intake Total 600 230 Balance 600 230 Weight 108.862 kg 109.5 kg Intake: IV 600 Sodium Chloride 0.9% 1, 600 000 ml @ 75 mls/hr IV . [id number] [facility] Rx#:[id number] Oral 230 - Exam Constitutional: No acute distress, conversant, pleasant Eyes:Anicteric sclerae, moist conjunctiva, no lid-lag, PERRLA, ENMT: Oropharynx clear, no erythema, exudates Neck: Supple, FROM, no masses, or JVD, No carotid bruits, No thyromegaly Lungs: Clear to auscultation, Clear to percussion, Normal respiratory effort, no accessory muscle use Cardiovascular: Heart regular in rate and rhythm, No murmurs, gallops, or rubs, No peripheral edema Abdominal: Soft, Nontender, no guarding, rebound or rigidity, Normoactive bowel sounds, No hepatomegaly, No splenomegaly, No palpable mass Skin: Normal temperature, tone, texture, turgor, no induration, No subcutaneous nodules, No rash, lesions, No ulcers Extremities: No digital cyanosis, No clubbing, Pedal pulses intact and symmetrical, Radial pulses intact and symmetrical, No calf tenderness Psychiatric: Alert and oriented to person, place and time, appropriate affect, intact judgement Neuro: Muscles Strength 5/5 in all 4 extremities, Sensation to light touch grossly present throughout, Cranial nerves II-XII grossly intact, no focal sensory deficits - Labs CBC & Chem 7: 07/14/18 16:50 07/15/18 05:25 Labs: Abnormal Lab Results - Last 24 Hours (Table) 07/14/18 07/14/18 07/14/18 Range/Units 16:50 16:50 18:55 Neutrophils # 8.3 H (1.3-7.7) k/uL Sodium 119 L* 119 L* (137-145) mmol/L Chloride 79 L* 80 L* (98-107) mmol/L BUN 42 H 41 H (9-20) mg/dL POC Glucose (mg/dL) (75-99) mg/dL Total Creatine Kinase (55-170) U/L CK-MB (CK-2) (0.0-2.4) ng/mL HDL Cholesterol (40-60) mg/dL 07/14/18 07/15/18 07/15/18 Range/Units 23:28 05:25 05:25 Neutrophils # (1.3-7.7) k/uL Sodium 118 L* 119 L* (137-145) mmol/L Chloride 83 L 83 L (98-107) mmol/L BUN 36 H 32 H (9-20) mg/dL POC Glucose (mg/dL) (75-99) mg/dL Total Creatine Kinase 196 H (55-170) U/L CK-MB (CK-2) 3.2 H* (0.0-2.4) ng/mL HDL Cholesterol 35 L (40-60) mg/dL 07/15/18 07/15/18 Range/Units 06:09 11:40 Neutrophils # (1.3-7.7) k/uL Sodium (137-145) mmol/L Chloride (98-107) mmol/L BUN (9-20) mg/dL POC Glucose (mg/dL) 120 H 119 H (75-99) mg/dL Total Creatine Kinase (55-170) U/L CK-MB (CK-2) (0.0-2.4) ng/mL HDL Cholesterol (40-60) mg/dL Assessment and Plan Plan: Presyncope, with hypotension , possibly due to dehydration from over diuresis Resolved, blood pressure improved with fluids Continue IV fluids Hold diuretics Discussed with cardiology, no further workup needed Acute on chronic hyponatremia Sodium was around 132 a few years back Likely secondary to HCTZ Hold HCTZ and Lasix for now Hold Aldactone Follow sodium level in the morning Chronic Chronic systolic congestive heart failure, compensated, CAD, History of Irregular heart beat, essential Hypertension, COPD compensated Stable Resume home meds DVT prophylaxis on heparin sc TID Tried to call PCP, number in chart isn't working, will try to get another number. Discussed with: Patient, ER, Anticipated discharge: 48-[address]: home A total of 35 minutes was spent on the care of this complex patient more than 50 % of the time was spent in counseling and care coordination.
[2018-07-15 17:18] LABS: Glucose,Whole Blood 104 mg/dL (75-99)
[2018-07-15 20:57] LABS: Glucose,Whole Blood 115 mg/dL (75-99)
[2018-07-15] MEDS: MELATONIN 3 MG TABLET PO SCH (23:12)
[2018-07-16] MEDS: HEPARIN SODIUM,PORCINE 5,000 UNIT/ML 1 ML VIAL SQ SCH ×4 (00:32→23:17)
[2018-07-16] MEDS: HYDROcodone/APAP 7.5-325MG 1 EACH TAB PO PRN ×2 (04:15→14:41)
[2018-07-16 05:53] LABS: Glucose,Whole Blood 117 mg/dL (75-99)
[2018-07-16 06:32] LABS: Anion Gap 7 mmol/L; Blood Urea Nitrogen 18 mg/dL (9-20); Calcium 9.6 mg/dL (8.4-10.2); Carbon Dioxide 24 mmol/L (22-30); Chloride 89 mmol/L (98-107); Glucose 101 mg/dL (74-99); Potassium 4.7 mmol/L (3.5-5.1)
[2018-07-16 07:09] LABS: Sodium 120 mmol/L (137-145)
[2018-07-16] MEDS: CHOLECALCIFEROL 1,000 UNIT TAB PO SCH (08:11)
[2018-07-16] MEDS: ASPIRIN 81 MG PO SCH (08:11)
[2018-07-16] MEDS: METOPROLOL TARTRATE 25 MG TAB PO SCH ×3 (08:11→23:16)
[2018-07-16] MEDS: PANTOPRAZOLE 40 MG TABLET PO SCH (08:11)
--- NOTE | 2018-07-16 12:02 | P.PN ---
Subjective Progress Note Date: 07/16/18 Principal diagnosis: Presyncope Sodium was not much better today, patient is very upset that he cannot go home. Objective - Vital Signs Vital signs: Vital Signs Temp 97.9 F 07/16/18 11:54 Pulse 129 H 07/16/18 11:54 Resp 16 07/16/18 11:54 BP 104/62 07/16/18 11:54 Pulse Ox 97 07/16/18 11:54 Intake & Output 07/15/18 07/16/18 07/16/18 18:59 06:59 18:59 Intake Total 1290 675 240 Output Total 500 450 Balance 790 675 -210 Weight 111.7 kg Intake: IV 600 675 Sodium Chloride 0.9% 1, 600 675 000 ml @ 75 mls/hr IV . [id number] NETO Rx#:[id number] Oral 690 240 Output: Urine 500 450 Other: Voiding Method Toilet Toilet # Voids 1 1 # Bowel Movements 1 - Exam Constitutional: No acute distress, conversant, pleasant Eyes:Anicteric sclerae, moist conjunctiva, no lid-lag, PERRLA, ENMT: Oropharynx clear, no erythema, exudates Neck: Supple, FROM, no masses, or JVD, No carotid bruits, No thyromegaly Lungs: Clear to auscultation, Clear to percussion, Normal respiratory effort, no accessory muscle use Cardiovascular: Heart regular in rate and rhythm, No murmurs, gallops, or rubs, No peripheral edema Abdominal: Soft, Nontender, no guarding, rebound or rigidity, Normoactive bowel sounds, No hepatomegaly, No splenomegaly, No palpable mass Skin: Normal temperature, tone, texture, turgor, no induration, No subcutaneous nodules, No rash, lesions, No ulcers Extremities: No digital cyanosis, No clubbing, Pedal pulses intact and symmetrical, Radial pulses intact and symmetrical, No calf tenderness Psychiatric: Alert and oriented to person, place and time, appropriate affect, intact judgement Neuro: Muscles Strength 5/5 in all 4 extremities, Sensation to light touch grossly present throughout, Cranial nerves II-XII grossly intact, no focal sensory deficits - Labs CBC & Chem 7: 07/14/18 16:50 07/16/18 05:53 Labs: Abnormal Lab Results - Last 24 Hours (Table) 07/14/18 07/15/18 07/15/18 Range/Units 16:50 11:40 17:04 Sodium (137-145) mmol/L Chloride (98-107) mmol/L Glucose (74-99) mg/dL POC Glucose (mg/dL) 119 H 104 H (75-99) mg/dL Hemoglobin A1c 6.1 H (4.0-6.0) % 07/15/18 07/16/18 07/16/18 Range/Units 20:55 05:52 05:53 Sodium 120 L* (137-145) mmol/L Chloride 89 L (98-107) mmol/L Glucose 101 H (74-99) mg/dL POC Glucose (mg/dL) 115 H 117 H (75-99) mg/dL Hemoglobin A1c (4.0-6.0) % Assessment and Plan Plan: Presyncope, with hypotension , possibly due to dehydration from over diuresis Resolved, blood pressure improved with fluids Hold diuretics Discussed with cardiology, no further workup needed Acute on chronic hyponatremia Likely secondary to HCTZ Hold HCTZ and Lasix for now Hold Aldactone Plasma and urine osmolality DC IV fluids Random cortisol, TSH within normal limits. Nephrology consult Chronic Chronic systolic congestive heart failure, compensated, CAD, History of Irregular heart beat, essential Hypertension, COPD compensated Stable Resume home meds DVT prophylaxis on heparin sc TID Discussed with: Patient, ER, Anticipated discharge: 48-[address]: home A total of 35 minutes was spent on the care of this complex patient more than 50 % of the time was spent in counseling and care coordination.
--- NOTE | 2018-07-16 12:25 | ECHOF ---
Referral Reason:hypotension MEASUREMENTS -------- HEIGHT: 182.9 cm WEIGHT: 111.6 kg BP: RVIDd: 4.0 cm (< 3.3) IVSd: 1.2 cm (0.6 - 1.1) LVIDd: 3.8 cm (3.9 - 5.3) LVPWd: 1.3 cm (0.6 - 1.1) IVSs: 1.5 cm LVIDs: 1.9 cm LVPWs: 1.8 cm Ao Diam: 4.2 cm (2.0 - 3.7) AV Cusp: 2.0 cm (1.5 - 2.6) LA Diam: 2.9 cm (2.7 - 3.8) MV EXCURSION: 8.590 mm (> 18.000) MV EF SLOPE: 146 mm/s (70 - 150) EPSS: 0.7 cm MV E Dusty: 0.89 m/s MV DecT: 173 ms MV A Dusty: 0.54 m/s MV E/A Ratio: 1.66 RAP: 5.00 mmHg RVSP: 40.81 mmHg FINDINGS -------- Sinus rhythm. Resting tachycardia (HR>100bpm). This was a technically adequate study. The left ventricular size is normal. There is mild concentric left ventricular hypertrophy. Overa ll left ventricular systolic function is normal with, an EF between 60 - 65 %. The right ventricle is moderately enlarged. The left atrium is normal in size. The right atrium is normal in size. The aortic valve is trileaflet, and appears structurally normal. No aortic stenosis or regurgitation. The mitral valve leaflets are mildly thickened. Mild mitral regurgitation is present. Mild tricuspid regurgitation present. There is mild pulmonary hypertension. The right ventricular systolic pressure, as measured by Doppler, is 40.81mmHg. The pulmonic valve was not well visualized. 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 There is no pericardial effusion. CONCLUSIONS -------- 1. Sinus rhythm. 2. Resting tachycardia (HR>100bpm). 3. This was a technically adequate study. 4. The left ventricular size is normal. 5. There is mild concentric left ventricular hypertrophy. 6. Overall left ventricular systolic function is normal with, an EF between 60 - 65 %. 7. The right ventricle is moderately enlarged. 8. The left atrium is normal in size. 9. The aortic valve is trileaflet, and appears structurally normal. No aortic stenosis or regurgitati on. 10. The mitral valve leaflets are mildly thickened. 11. Mild mitral regurgitation is present. 12. Mild tricuspid regurgitation present. 13. There is mild pulmonary hypertension. 14. The right ventricular systolic pressure, as measured by Doppler, is 40.81mmHg. 15. The pulmonic valve was not well visualized. 16. 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 17. Normal inferior vena cava with normal inspiratory collapse consistent with estimated right atrial pressure of 5 mmHg. 18. There is no pericardial effusion. [employer] OFFICER: Yamini Avila RDCS
--- NOTE | 2018-07-16 12:39 | P.NPCON ---
History of Present Illness - Reason for Consult Consult date: 07/16/18 hyponatremia - Chief Complaint Hyponatremia - History of Present Illness This is a 68-year-old male seen in consultation because of hyponatremia. He was admitted 2 days ago on 07/14/2018 with sodium off 119 and this morning it remains at 120. He has been given IV fluids 75 mL an hour or the last 2 days. Patient was recently diagnosed to have diabetes he tried Januvia and metformin which caused some nausea vomiting he stopped those medications approximately 2 days prior to admission. His vomiting was infrequent. He was seen in his doctor's office and was noted to be hypotensive with pressure in the 70 therefore he was sent to the emergency room to be admitted. Patient has not had any changes in medication other than this. He was on lisinopril had upper thigh that, Aldactone and Lasix at the time of admission additionally he is on Naprosyn for arthritis Patient is a chronic smoker Other than this he is known with chronic hypertension, well controlled, COPD, history of atrial fibrillation. He has ejection fraction of 45% and therefore cardiomyopathy. Over the last 4 years he lost 50 pounds which he claims is from dieting. Past Medical History Past Medical History: Atrial Fibrillation, Heart Failure, COPD, Hypertension, Musculoskeletal Disorder, Osteoarthritis (OA) Additional Past Medical History / Comment(s): chronic lower back pain, herniated disc. History of Any Multi-Drug Resistant Organisms: None Reported Past Surgical History: Appendectomy, Heart Catheterization, Orthopedic Surgery Additional Past Surgical History / Comment(s): shattered lt ankle(hardware removed), vasectomtomy, colonoscopy w/polyps removed. Past Anesthesia/Blood Transfusion Reactions: No Reported Reaction Additional Past Anesthesia/Blood Transfusion Reaction / Comment(s): claustrophobic. Past Psychological History: No Psychological Hx Reported Smoking Status: Current every day smoker Past Alcohol Use History: None Reported Past Drug Use History: None Reported - Past Family History Father Family Medical History: Myocardial Infarction (CA) Additional Family Medical History / Comment(s): at age 86 Mother Family Medical History: Cancer, Congestive Heart Failure (CHF), Diabetes Mellitus, Myocardial Infarction (CA), Pneumonia Additional Family Medical History / Comment(s): at age 59 Medications and Allergies Home Medications Medication Instructions Recorded Confirmed Type Cholecalciferol [Vitamin D3] 5,000 unit PO DAILY 05/31/15 07/14/18 History Aspirin 81 mg PO DAILY #1 chewable 06/04/15 07/14/18 Rx Metoprolol Tartrate [Lopressor] 25 mg PO TID #90 tab 06/04/15 07/14/18 Rx Spironolactone [Aldactone] 25 mg PO DAILY #30 tab 06/04/15 07/14/18 Rx Anastrozole [Arimidex] 1 mg PO MOWEFR 07/14/18 07/14/18 History Furosemide [Lasix] 40 mg PO DAILY 07/14/18 07/14/18 History HYDROcodone/APAP 7.5-325MG [Hope 1 tab PO Q6H PRN 07/14/18 07/14/18 History 7.5-325] Lisinopril-Hctz 10-12.5 mg 1 tab PO DAILY 07/14/18 07/14/18 History [Zestoretic 10-12.5] Naproxen Sodium 550 mg PO Q12H 07/14/18 07/14/18 History Allergies Allergy/AdvReac Type Severity Reaction Status Date / Time No Known Allergies Allergy Verified 07/14/18 17:11 Physical Exam Vitals: Vital Signs Temp Pulse Resp BP BP Pulse Ox 07/16/18 11:54 97.9 F 129 H 16 104/62 97 07/16/18 08:00 97.8 F 75 20 124/80 97 07/16/18 04:00 97.7 F 95 16 106/72 97 07/16/18 00:00 97.9 F 88 16 99/68 95 07/15/18 20:00 98 F 74 16 125/81 97 07/15/18 15:50 98.6 F 68 18 116/70 97 07/15/18 12:35 97.8 F 74 18 119/77 96 Intake and Output 07/15/18 07/16/18 07/16/18 22:59 06:59 14:59 Intake Total 230 675 240 Output Total 300 450 Balance -70 675 -210 Intake: IV 675 Sodium Chloride 0.9% 1, 675 000 ml @ 75 mls/hr IV . [id number] Rx#:[id number] Oral 230 240 Output: Urine 300 450 Other: Voiding Method Toilet Toilet Toilet # Voids 1 1 1 # Bowel Movements 1 Weight 111.7 kg On examination is awake alert oriented comfortable HEENT exam no JVP lymphadenopathy thyromegaly neck is supple no facial asymmetry Lungs are clear to auscultation with less than normal air entry no crackles. Heart sounds are unremarkable for any murmur rub gallop he is in atrial fibrillation Soft nontender no organomegaly status masses Extremity exam was no edema Warm to touch Neurologically awake alert oriented. Results - Lab Results Most recent lab results Calcium 9.6 mg/dL (8.4-10.2) 07/16/18 05:53 Magnesium 1.9 mg/dL (1.6-2.3) 07/14/18 16:50 07/14/18 16:50 07/16/18 05:53 Assessment and Plan Plan: Impression 1. Hyponatremia with admission serum sodium off 119 unresponsive to normal saline for the last 48 hours approximately sodium is 120 this morning. This rules out hypovolemia although his clinical presentation with hypotension and multiple diuretics was consistent with hypovolemia. Workup has shown TSH is normal at 1.8 and serum cortisol is 9, unlikely to be adrenal insufficiency although it cannot be ruled out. SIADH secondary to malignancy given he is a smoker needs to be ruled out 2. Acute kidney injury, His creatinine on admission was 1.2 as improved to 0.7 indicating some amount of acute kidney injury and response to IV fluid 3. Cardiomyopathy ejection fraction 45%. 4. COPD chronic smoker possible SIADH is from malignancy 5. Obesity 6. Borderline diabetes off of medications. Recommendation 1. Check serum uric acid, urine osmolality, urine sodium. 2. Check orthostatic changes. 3. Discontinue all IV fluids Lasix diuretics and restudy him. 4. If SIADH is confirmed he would need a computed tomography scan of the chest to rule out malignancy. His chest x-ray on 07/14/2018 is normal 5. He may need adrenal insufficiency injury rule out based on his initial workup
--- NOTE | 2018-07-16 14:58 | P.PN ---
Subjective Progress Note Date: 07/16/18 This is a 68-year-old gentleman who follows with Dr. Garcia in the office. His primary care doctor is Dr. Coronel. Patient has history of hypertension, COPD, nicotine dependence, recently diagnosed with diabetes, denies any hyperlipidemia, recovering alcoholic, who presents to the hospital with symptoms of lightheadedness and near-syncope, he out like he may pass out. He was in the doctor's office when these symptoms started, they checked his blood pressure there which was noted to be significantly low. According to the patient, he was recently tried on metformin, had several episodes of vomiting, they changed him to extended release metformin he had the same symptoms, then the patient was started on Januvia and according to him and his he again had some episodes of vomiting. Patient has been having some issues recently with very decreased appetite, and episodes of vomiting. He is also known to run low sodium levels, however recently it has been noted that his sodium is running a much lower than usual. According to the patient, he has also been told to have a history of irregular heartbeat in the past, also underwent cardiac catheterization which according to the patient was unremarkable. Telemetry strips shows sinus rhythm with frequent PACs. We will get Dr. Garcia' s office note to review all of these things. Cardiology was primarily consult because of hypotension and near syncope. Chest x-ray on admission did not reveal any acute cardiopulmonary disease. EKG shows normal sinus rhythm with a right bundle branch block pattern and nonspecific ST-T wave changes. I pressure on arrival here 70/50 with a heart rate in the 70s, 97% on room air. Let pressure this morning 126/80 with a heart rate in the 70s, 93% on room air. White blood cell count is normal, hemoglobin 14.5, platelet count 353. Sodium level 119 on admission, 119 this morning, potassium 4.9, BUN 32, creatinine 0.9. Magnesium level I.9. TSH level I.8. Troponin 0.012, 0.015, 0.017. At the time of my examination this morning, patient states she's been up ambulating in the hallway, denies any dizziness or lightheadedness. Currently receiving 0.9 normal saline at 75 mL per hour. 07/16/2008 Patient was seen and examined this morning, overall he states he feels well, no dizziness or lightheadedness patient was seen in consultation by nephrology. His sodium level today is 120, potassium 4.7, BUN 18, creatinine 0.7. Echocardiogram with Doppler study was performed which revealed an ejection fraction of 60-65%. Blood pressure today 98/66, heart rate in the 90s, 97% on room air. Objective - Vital Signs Vital signs: Vital Signs Temp 97.9 F 07/16/18 11:54 Pulse 90 07/16/18 12:49 Resp 16 07/16/18 11:54 BP 98/66 07/16/18 12:49 Pulse Ox 97 07/16/18 11:54 Intake & Output 07/15/18 07/16/18 07/16/18 18:59 06:59 18:59 Intake Total 1290 675 240 Output Total 500 1050 Balance 790 675 -810 Weight 111.7 kg Intake: IV 600 675 Sodium Chloride 0.9% 1, 600 675 000 ml @ 75 mls/hr IV . [id number] [facility] Rx#:[id number] Oral 690 240 Output: Urine 500 1050 Other: Voiding Method Toilet Toilet # Voids 1 1 # Bowel Movements 1 - Exam PHYSICAL EXAMINATION: GENERAL: 68-year-old gentleman in no acute distress at the time of my examination HEENT: Head is atraumatic, normocephalic. Pupils equal, round. Sclera anicteric. Conjunctiva are clear. Mucous membranes of the mouth are moist. Neck is supple. There is no elevated jugular venous pressure. No carotid bruit is heard. HEART EXAMINATION: Heart S1, S2 normal. No murmur or gallop heard. CHEST EXAMINATION: Lungs are clear to auscultation and precussion. No chest wall tenderness is noted on palpation or with deep breathing. ABDOMEN: Soft, nontender. Bowel sounds are heard. No organomegaly noted. EXTREMITIES: 2+ peripheral pulses with no evidence of peripheral edema and no calf tenderness noted. NEUROLOGIC patient is awake, alert and oriented X3. - Labs CBC & Chem 7: 07/14/18 16:50 07/16/18 05:53 Labs: Abnormal Lab Results - Last 24 Hours (Table) 07/14/18 07/15/18 07/15/18 Range/Units 16:50 17:04 20:55 Sodium (137-145) mmol/L Chloride (98-107) mmol/L Glucose (74-99) mg/dL POC Glucose (mg/dL) 104 H 115 H (75-99) mg/dL Hemoglobin A1c 6.1 H (4.0-6.0) % Osmolality (280-301) mosm/kg 07/16/18 07/16/18 07/16/18 Range/Units 05:52 05:53 05:53 Sodium 120 L* (137-145) mmol/L Chloride 89 L (98-107) mmol/L Glucose 101 H (74-99) mg/dL POC Glucose (mg/dL) 117 H (75-99) mg/dL Hemoglobin A1c (4.0-6.0) % Osmolality 254 L (280-301) mosm/kg Assessment and Plan Plan: Assessment and plan #1 symptoms of lightheadedness and near syncope, likely secondary to hypotension. #2 acute on chronic hyponatremia #3 hypertension #4 COPD #5 obesity #6 nicotine dependence #7 recent decreased appetite and episodes of vomiting #8 recent diagnosis of diabetes, currently on Januvia Plan Echocardiogram with Doppler study was performed which revealed a normal left ventricular systolic function. We will continue current dose of beta domenic. Continue to hold lisinopril hydrochlorothiazide, Aldactone, and Lasix. DNP note has been reviewed, I agree with a documented findings and plan of care. Patient was seen and examined.
[2018-07-16 16:43] LABS: Glucose,Whole Blood 132 mg/dL (75-99)
[2018-07-16 17:04] LABS: Glucose,Whole Blood 119 mg/dL (75-99)
[2018-07-16 17:07] LABS: Potassium 4.8 mmol/L (3.5-5.1)
[2018-07-16 20:48] LABS: Glucose,Whole Blood 116 mg/dL (75-99)
[2018-07-16] MEDS: MELATONIN 3 MG TABLET PO SCH (21:45)
[2018-07-16] MEDS: NICOTINE 14MG/24HR PATCH TRANSDERM SCH ×2 (23:15→23:16)
[2018-07-16] MEDS: ZOLPIDEM 10 MG TAB PO SCH (23:16)
[2018-07-17] MEDS: HYDROcodone/APAP 7.5-325MG 1 EACH TAB PO PRN ×4 (01:51→23:32)
[2018-07-17 05:56] LABS: Glucose,Whole Blood 113 mg/dL (75-99)
[2018-07-17 07:03] LABS: Anion Gap 9 mmol/L; Blood Urea Nitrogen 9 mg/dL (9-20); Calcium 9.8 mg/dL (8.4-10.2); Carbon Dioxide 20 mmol/L (22-30); Chloride 96 mmol/L (98-107); Glucose 94 mg/dL (74-99); Magnesium 1.7 mg/dL (1.6-2.3); Phosphorus 2.6 mg/dL (2.5-4.5); Potassium 4.9 mmol/L (3.5-5.1); Sodium 125 mmol/L (137-145)
[2018-07-17] MEDS: HEPARIN SODIUM,PORCINE 5,000 UNIT/ML 1 ML VIAL SQ SCH ×3 (09:18→23:35)
[2018-07-17] MEDS: NICOTINE 14MG/24HR PATCH TRANSDERM SCH (09:19)
[2018-07-17] MEDS: ASPIRIN 81 MG PO SCH (09:19)
[2018-07-17] MEDS: PANTOPRAZOLE 40 MG TABLET PO SCH (09:19)
[2018-07-17] MEDS: CHOLECALCIFEROL 1,000 UNIT TAB PO SCH (09:19)
[2018-07-17] MEDS: METOPROLOL TARTRATE 25 MG TAB PO SCH ×3 (09:19→21:07)
--- NOTE | 2018-07-17 09:55 | P.PN ---
Subjective Progress Note Date: 07/17/18 Principal diagnosis: Presyncope Patient continues to be upset that he has not been sleeping overnight. Otherwise no symptoms. Objective - Vital Signs Vital signs: Vital Signs Temp 96.9 F L 07/17/18 08:00 Pulse 75 07/17/18 08:00 Resp 20 07/17/18 08:00 BP 121/79 07/17/18 08:00 Pulse Ox 97 07/17/18 08:00 Intake & Output 07/16/18 07/17/18 07/17/18 18:59 06:59 18:59 Intake Total 420 240 Output Total 1200 2625 Balance -780 -2625 240 Weight 109.9 kg Intake: Oral 420 240 Output: Urine 1200 2625 Other: Voiding Method Toilet # Voids 1 2 # Bowel Movements 1 - Exam Constitutional: No acute distress, conversant, pleasant Eyes:Anicteric sclerae, moist conjunctiva, no lid-lag, PERRLA, ENMT: Oropharynx clear, no erythema, exudates Neck: Supple, FROM, no masses, or JVD, No carotid bruits, No thyromegaly Lungs: Clear to auscultation, Clear to percussion, Normal respiratory effort, no accessory muscle use Cardiovascular: Heart regular in rate and rhythm, No murmurs, gallops, or rubs, No peripheral edema Abdominal: Soft, Nontender, no guarding, rebound or rigidity, Normoactive bowel sounds, No hepatomegaly, No splenomegaly, No palpable mass Skin: Normal temperature, tone, texture, turgor, no induration, No subcutaneous nodules, No rash, lesions, No ulcers Extremities: No digital cyanosis, No clubbing, Pedal pulses intact and symmetrical, Radial pulses intact and symmetrical, No calf tenderness Psychiatric: Alert and oriented to person, place and time, appropriate affect, intact judgement Neuro: Muscles Strength 5/5 in all 4 extremities, Sensation to light touch grossly present throughout, Cranial nerves II-XII grossly intact, no focal sensory deficits - Labs CBC & Chem 7: 07/14/18 16:50 07/17/18 06:18 Labs: Abnormal Lab Results - Last 24 Hours (Table) 07/16/18 07/16/18 07/16/18 Range/Units 05:53 11:48 16:49 Sodium 121 L (137-145) mmol/L Chloride 91 L (98-107) mmol/L Carbon Dioxide (22-30) mmol/L Creatinine (0.66-1.25) mg/dL POC Glucose (mg/dL) 132 H (75-99) mg/dL Osmolality 254 L (280-301) mosm/kg 07/16/18 07/16/18 07/17/18 Range/Units 17:01 20:47 05:55 Sodium (137-145) mmol/L Chloride (98-107) mmol/L Carbon Dioxide (22-30) mmol/L Creatinine (0.66-1.25) mg/dL POC Glucose (mg/dL) 119 H 116 H 113 H (75-99) mg/dL Osmolality (280-301) mosm/kg 07/17/18 Range/Units 06:18 Sodium 125 L (137-145) mmol/L Chloride 96 L (98-107) mmol/L Carbon Dioxide 20 L (22-30) mmol/L Creatinine 0.63 L (0.66-1.25) mg/dL POC Glucose (mg/dL) (75-99) mg/dL Osmolality (280-301) mosm/kg Assessment and Plan Plan: Presyncope, with hypotension , possibly due to dehydration from over diuresis Resolved, blood pressure improved with fluids Hold diuretics Discussed with cardiology, no further workup needed Acute on chronic hyponatremia Likely secondary to HCTZ, rule out SIADH as well as urine osmolality is high, 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 Nephrology consult appreciated Chronic Chronic systolic congestive heart failure, compensated, CAD, History of Irregular heart beat, essential Hypertension, COPD compensated Stable Resume home meds DVT prophylaxis on heparin sc TID Discussed with: Patient, ER, Anticipated discharge: 24-[address]: home A total of 35 minutes was spent on the care of this complex patient more than 50 % of the time was spent in counseling and care coordination.
--- NOTE | 2018-07-17 11:01 | P.PN ---
Subjective Progress Note Date: 07/17/18 This 68-year-old male was seen in consultation because of hyponatremia. Initially it was deemed to be from hypovolemia because he came in with the history of nausea vomiting and had multiple diuretics. He did not respond to IV saline with sodium remaining low. Possibility of SIADH is therefore released. His workup has shown uric acid of 4.4, urine osmolality is 258 off of the IV saline for a few hours, urine sodium is not available as the lab has been sent out. He continues to be fairly asymptomatic. He does have a history of excessive fluid intake as well as past history of alcohol his him. His also a smoker therefore possibility of lung cancer is raised. This morning his orthostatics were negative supine blood pressure was 117/76 with a heart rate of 72, standing up was 114/75 with a heart rate of 86. Patient denies any aches pains nausea. No headache no shortness of breath. No nausea vomiting diarrhea. The pressure remains somewhat low, in the 110s to 120s Objective - Vital Signs Vital signs: Vital Signs Temp 96.9 F L 07/17/18 08:00 Pulse 75 07/17/18 08:00 Resp 20 07/17/18 08:00 BP 121/79 07/17/18 08:00 Pulse Ox 97 07/17/18 08:00 Intake & Output 07/16/18 07/17/18 07/17/18 18:59 06:59 18:59 Intake Total 420 240 Output Total 1200 2625 Balance -780 -2625 240 Weight 109.9 kg Intake: Oral 420 240 Output: Urine 1200 2625 Other: Voiding Method Toilet # Voids 1 2 # Bowel Movements 1 On examination is awake alert oriented comfortable HEENT exam no JVP neck is supple no facial asymmetry Lungs are clear to auscultation good air entry bilaterally. Heart sounds are unremarkable rub gallop Abdomen soft nontender Extremity exam reveals no edema Neurologically awake alert oriented. - Labs CBC & Chem 7: 07/14/18 16:50 07/17/18 06:18 Labs: Abnormal Lab Results - Last 24 Hours (Table) 07/16/18 07/16/18 07/16/18 Range/Units 05:53 11:48 16:49 Sodium 121 L (137-145) mmol/L Chloride 91 L (98-107) mmol/L Carbon Dioxide (22-30) mmol/L Creatinine (0.66-1.25) mg/dL POC Glucose (mg/dL) 132 H (75-99) mg/dL Osmolality 254 L (280-301) mosm/kg 07/16/18 07/16/18 07/17/18 Range/Units 17:01 20:47 05:55 Sodium (137-145) mmol/L Chloride (98-107) mmol/L Carbon Dioxide (22-30) mmol/L Creatinine (0.66-1.25) mg/dL POC Glucose (mg/dL) 119 H 116 H 113 H (75-99) mg/dL Osmolality (280-301) mosm/kg 07/17/18 Range/Units 06:18 Sodium 125 L (137-145) mmol/L Chloride 96 L (98-107) mmol/L Carbon Dioxide 20 L (22-30) mmol/L Creatinine 0.63 L (0.66-1.25) mg/dL POC Glucose (mg/dL) (75-99) mg/dL Osmolality (280-301) mosm/kg Assessment and Plan Plan: Impression 1. Hyponatremia with admission serum sodium off 119 unresponsive to normal saline for 48 hours approximately sodium is 120. This rules out hypovolemia although his clinical presentation with hypotension and multiple diuretics was consistent with hypovolemia. Workup has shown TSH is normal at 1.8 and serum cortisol is 9, unlikely to be adrenal insufficiency although it cannot be ruled out. SIADH secondary to malignancy given he is a smoker needs to be ruled out. If this morning sodium and up to 124 off of IV fluids. Uric acid is 4.4. The urine osmolality is 258. Urine sodium is ordered pending as the lab is a sent out. 2. Acute kidney injury, His creatinine on admission was 1.2 as improved to 0.7 indicating some amount of acute kidney injury and response to IV fluid 3. Cardiomyopathy ejection fraction 45%. 4. COPD chronic smoker possible SIADH is from malignancy 5. Obesity 6. Borderline diabetes off of medications. 7. History of draining large amounts of diet Coke. 8. History of alcohol use in the past Recommendation 1. Remain on 1200 mL fluid restriction. 2. Remain off of any diuretics for right now. 3. Redo labs including renal panel, urine osmolality and sodium tomorrow. 4. He can be discharged but needs to be followed up then in the office in the next 2 or 3 days with repeat labs in 48 hours after discharge and maintaining his 100 mL fluid restriction and increased protein intake.
--- NOTE | 2018-07-17 11:13 | CDI ---
Documentation Clarification Form Date: 07/17/18 CDS: Skylar Logan RN Admit Date: 07/14/18 Patient Name: Lazarus Smart ATTENTION: The Clinical Documentation Specialists (CDI) and [facility] Coding Staff appreciate your assistance in clarifying documentation. Please respond to the clarification below the line at the bottom and electronically sign. The CDI & [facility] Coding staff will review the response and follow-up if needed. Please note: Queries are made part of the Legal Health Record. If you have any questions, please contact the author of this message via ITS. Dr. Estefani Kumar, Documentation of COPD is located throughout the chart. To capture the severity of illness can you please render your opinion on the following? Pt. presented with lightheadedness and dizzy. Admitted for severe hyponatremia History/Risk Factors: a fib, heart failure, COPD, HTN, musculoskeletal disorder OA, smoker, CAD, obesity, recent diagnosis of diabetes. Present chronic smoker Clinical Indicators: Vital Signs on admission: T 97.7, P 76, R 16, 71/50, 97% RA Lung and Respiratory Assessment: decreased breath sounds throughout Treatment: Nebulizers: Duoneb In your professional opinion, can you please clarify if the above findings and treatment signify any of the following? COPD with acute exacerbation No acute exacerbation Other condition, please specify Unable to determine Please continue to document in your progress notes, under the line below and/or in the discharge summary to capture severity of illness and risk of mortality. Include clinical findings that support your diagnosis. MTDD
[2018-07-17 11:41] LABS: Glucose,Whole Blood 108 mg/dL (75-99)
[2018-07-17 16:31] LABS: Glucose,Whole Blood 124 mg/dL (75-99)
[2018-07-17 21:01] LABS: Glucose,Whole Blood 133 mg/dL (75-99)
[2018-07-17] MEDS: MELATONIN 3 MG TABLET PO SCH (21:06)
[2018-07-17] MEDS: ZOLPIDEM 10 MG TAB PO SCH (23:32)
[2018-07-18] MEDS: HYDROcodone/APAP 7.5-325MG 1 EACH TAB PO PRN ×2 (05:15→10:59)
[2018-07-18 06:12] LABS: Glucose,Whole Blood 103 mg/dL (75-99)
[2018-07-18 07:10] LABS: Anion Gap 6 mmol/L; Blood Urea Nitrogen 9 mg/dL (9-20); Calcium 9.8 mg/dL (8.4-10.2); Carbon Dioxide 22 mmol/L (22-30); Chloride 98 mmol/L (98-107); Glucose 95 mg/dL (74-99); Potassium 4.7 mmol/L (3.5-5.1); Sodium 126 mmol/L (137-145)
--- NOTE | 2018-07-18 07:44 | P.PN ---
Subjective Progress Note Date: 07/18/18 This 68-year-old male was seen in consultation because of hyponatremia. Initially it was deemed to be from hypovolemia because he came in with the history of nausea vomiting and had multiple diuretics. He did not respond to IV saline with sodium remaining low. Possibility of SIADH is therefore released. His workup has shown uric acid of 4.4, urine osmolality is 258 off of the IV saline for a few hours, urine sodium is 42 which suggests that there is no avid with sodium consultation by the tubules, which might have suggested volume depletion. He continues to be fairly asymptomatic. He does have a history of excessive fluid intake as well as past history of alcohol his him. His also a smoker therefore possibility of lung cancer is raised. This morning his orthostatics were negative supine blood pressure was 117/76 with a heart rate of 72, standing up was 114/75 with a heart rate of 86. Patient denies any aches pains nausea. No headache no shortness of breath. No nausea vomiting diarrhea. The pressure remains somewhat low, in the 110s to 120s Objective - Vital Signs Vital signs: Vital Signs Temp 98 F 07/18/18 04:00 Pulse 66 07/18/18 04:00 Resp 16 07/18/18 04:00 BP 134/96 07/18/18 04:00 Pulse Ox 97 07/18/18 04:00 Intake & Output 07/17/18 07/18/18 07/18/18 18:59 06:59 18:59 Intake Total 462 358 240 Output Total 300 Balance 462 58 240 Weight 110.4 kg Intake: Oral 462 358 240 Output: Urine 300 Other: Voiding Method Toilet Toilet # Voids 2 # Bowel Movements 0 On examination is awake alert oriented comfortable he had better sleep last night HEENT exam no JVP neck supple no facial asymmetry Lungs are clear to auscultation with fair air entry, distant breath sounds. Heart sounds are unremarkable for any murmur rub gallop. Distant heart sounds Abdomen soft nontender protuberant Extremity exam was no edema Neurologically awake alert oriented. - Labs CBC & Chem 7: 07/14/18 16:50 07/18/18 06:44 Labs: Abnormal Lab Results - Last 24 Hours (Table) 07/17/18 07/17/18 07/17/18 Range/Units 11:39 16:29 20:58 Sodium (137-145) mmol/L Creatinine (0.66-1.25) mg/dL POC Glucose (mg/dL) 108 H 124 H 133 H (75-99) mg/dL 07/18/18 07/18/18 Range/Units 06:11 06:44 Sodium 126 L (137-145) mmol/L Creatinine 0.62 L (0.66-1.25) mg/dL POC Glucose (mg/dL) 103 H (75-99) mg/dL Assessment and Plan Plan: Impression 1. Hyponatremia with admission serum sodium off 119 unresponsive to normal saline for 48 hours approximately sodium is 120. This rules out hypovolemia although his clinical presentation with hypotension and multiple diuretics was consistent with hypovolemia. Workup has shown TSH is normal at 1.8 and serum cortisol is 9, unlikely to be adrenal insufficiency although it cannot be ruled out. SIADH secondary to malignancy given he is a smoker needs to be ruled out. 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 Uric acid is 4.4. The urine osmolality is 258. Urine sodium is 42 therefore is not concerning sodium which might have suggested volume depletion. . 2. Acute kidney injury, His creatinine on admission was 1.2 as improved to 0.7 indicating some amount of acute kidney injury and response to IV fluid 3. Cardiomyopathy ejection fraction 45%. 4. COPD chronic smoker possible SIADH is from malignancy 5. Obesity 6. Borderline diabetes off of medications. 7. History of draining large amounts of diet Coke. 8. History of alcohol use in the past Recommendation 1. Remain on 1200 mL fluid restriction. 2. Remain off of any diuretics for right now. 3. Redo labs including renal panel, tomorrow. 4. He can be discharged but needs to be followed up then in the office in the next 2 or 3 days with repeat labs in 48 hours after discharge and maintaining his 100 mL fluid restriction and increased protein intake. He has been given instruction as well as a prescription for the same labs
[2018-07-18 09:14] VITALS: BP 111/70; PULSE 85; RESP 20; TEMP 97.3
[2018-07-18] MEDS: HEPARIN SODIUM,PORCINE 5,000 UNIT/ML 1 ML VIAL SQ SCH (09:20)
[2018-07-18] MEDS: CHOLECALCIFEROL 1,000 UNIT TAB PO SCH (09:21)
[2018-07-18] MEDS: PANTOPRAZOLE 40 MG TABLET PO SCH (09:22)
[2018-07-18] MEDS: METOPROLOL TARTRATE 25 MG TAB PO SCH (09:22)
[2018-07-18] MEDS: ASPIRIN 81 MG PO SCH (09:22)
[2018-07-18] MEDS: NICOTINE 14MG/24HR PATCH TRANSDERM SCH (09:22)
--- NOTE | 2018-07-18 10:01 | P.DS ---
Providers Date of admission: 07/14/18 17:40 Expected date of discharge: 07/18/18 Attending physician: Estefani Degroot, DO Consults: 07/14/18 17:42 Consult Physician Urgent Consulting Provider: Yazan Gomez Consult Reason/Comments: Cardiac evaluation Do you want consulting provider notified?: Yes 07/16/18 08:22 Consult Physician Urgent Consulting Provider: Frank Cleary Consult Reason/Comments: hyponatremia Do you want consulting provider notified?: Yes Primary care physician: [facility] Course: 68 year old male with history of congestive heart failure with left ventricular ejection fraction of 4045 percent, was at his doctor office for routine visit and blood work and right after he was leaving the office he felt a little woozy and lightheaded, he did not fall or pass out, his blood pressure was checked and was found to be hypotensive, his doctor recommended that he goes to the hospital. also reported to me episodes of confusion over the last several months. His drove him to the emergency department for further evaluation. Patient denied any chest pain, shortness of breath, heart racing, nausea or vomiting, abdominal pain, headache, changes in his vision or hearing, changes in his speech, denies any focal neurological deficits. No leg swelling, changes in his urinary habits or bowel habits. Patient reported history of chronic hyponatremia however he is not sure how low his his sodium. He reported that his doctor recommended to him to increase his salt intake. In the emergency department patient underwent extensive evaluation. His blood pressure was slightly low at 88/56. Because of that he was started on IV fluids and shortly after that the pressure improved. Laboratory testing revealed sodium level of 119. Going back to several years ago sodium level was in the early 130s. Patient takes Aldactone, HCTZ and Lasix for blood pressure and CHF. Because of that dehydration was suspected. He was treated with IV fluids normal saline for a total of 48 hours. However despite that his sodium level didn't improved significantly. Plasma osmolality was 254, urine osmolality came back at 258 and urine sodium was 42. TSH was within normal limits. Cortisol, random was 9. Patient was evaluated by nephrology service who thought that the hyponatremia was most likely secondary to SIADH. The IV fluids were discontinued and patient was started on fluid restriction and just then the sodium improved to 126. Currently patient is feeling better. He was cleared by nephrology for discharge. Patient was very upset about the hospitalization and complained that he could not sleep on the hospital bed. He was given some Ambien for insomnia. Her prescription for follow-up BMP to be done tomorrow was given to the patient. He was instructed to follow-up with his primary care physician on Saturday. Discharge diagnoses SIADH Chronic systolic congestive heart failure, no acute exacerbation Transient hypotension, resolved Chronic COPD, no acute exacerbation Plan - Discharge Summary Discharge Rx Participant: No New Discharge Prescriptions: New Lisinopril [Prinivil] 10 mg PO DAILY #30 tab Zolpidem [Ambien] 5 mg PO HS #15 tab Continue Cholecalciferol [Vitamin D3] 5,000 unit PO DAILY Metoprolol Tartrate [Lopressor] 25 mg PO TID #90 tab Aspirin 81 mg PO DAILY #1 chewable Naproxen Sodium 550 mg PO Q12H HYDROcodone/APAP 7.5-325MG [[place] 7.5-325] 1 tab PO Q6H PRN PRN Reason: Pain Discontinued Spironolactone [Aldactone] 25 mg PO DAILY #30 tab Anastrozole [Arimidex] 1 mg PO MOWEFR Furosemide [Lasix] 40 mg PO DAILY Lisinopril-Hctz 10-12.5 mg [Zestoretic 10-12.5] 1 tab PO DAILY Discharge Medication List Cholecalciferol [Vitamin D3] 5,000 unit PO DAILY 05/31/15 [History] Aspirin 81 mg PO DAILY #1 chewable 06/04/15 [Rx] Metoprolol Tartrate [Lopressor] 25 mg PO TID #90 tab 06/04/15 [Rx] HYDROcodone/APAP 7.5-325MG [[place] 7.5-325] 1 tab PO Q6H PRN 07/14/18 [History] Naproxen Sodium 550 mg PO Q12H 07/14/18 [History] Lisinopril [Prinivil] 10 mg PO DAILY #30 tab 07/18/18 [Rx] Zolpidem [Ambien] 5 mg PO HS #15 tab 07/18/18 [Rx] Follow up Appointment(s)/Referral(s): Johan Coronel MD [Primary Care Provider] - 1-2 days
== END 2018-07-18 11:32 | disposition home or self-care (01) | DRG 644 ==
LOC: EC 15:16 → 6SEL 17:40
PROVIDERS: ADMIT Internal Medicine; ATTEND Internal Medicine
DX: E22.2 Syndrome of inappropriate secretion of antidiuretic hormone (principal); I42.9 Cardiomyopathy, unspecified; I50.22 Chronic systolic (congestive) heart failure; N17.9 Acute kidney failure, unspecified; E11.9 Type 2 diabetes mellitus without complications; E66.9 Obesity, unspecified; E86.0 Dehydration; E86.1 Hypovolemia; F17.200 Nicotine dependence, unspecified, uncomplicated; F40.240 Claustrophobia; G47.00 Insomnia, unspecified; I11.0 Hypertensive heart disease with heart failure; I25.10 Atherosclerotic heart disease of native coronary artery without angina pectoris; I45.10 Unspecified right bundle-branch block; I48.91 Unspecified atrial fibrillation; J44.9 Chronic obstructive pulmonary disease, unspecified; M19.90 Unspecified osteoarthritis, unspecified site; Z79.82 Long term (current) use of aspirin; Z79.899 Other long term (current) drug therapy; Z82.49 Family history of ischemic heart disease and other diseases of the circulatory system; Z83.3 Family history of diabetes mellitus; Z79.891 Long term (current) use of opiate analgesic
CPT/HCPCS: 36415; 71046; 80048; 80051; 80053; 80061; 82533; 82550; 82553; 83036; 83735; 83930; 83935; 84100; 84300; 84443; 84484; 84550; 85025; 85610; 85730; 93005; 93306; 96360; 96361; 99285

== ENCOUNTER → 2018-07-19 | Outpatient (CLI) | payer MEDICARE ==
[2018-07-19 10:59] LABS: Creatinine,Urine Random 162.2 mg/dL
[2018-07-19 11:00] LABS: Anion Gap 7 mmol/L; Blood Urea Nitrogen 11 mg/dL (9-20); Calcium 9.8 mg/dL (8.4-10.2); Carbon Dioxide 27 mmol/L (22-30); Chloride 96 mmol/L (98-107); Glucose 95 mg/dL (74-99); Potassium 5.1 mmol/L (3.5-5.1); Sodium 130 mmol/L (137-145)
== END | disposition home or self-care (01) ==
LOC: LABWHC1 10:15
PROVIDERS: ATTEND Internal Medicine Nephrology
DX: E22.2 Syndrome of inappropriate secretion of antidiuretic hormone (principal)
CPT/HCPCS: 36415; 80048; 82570; 83935; 84300

== ENCOUNTER → 2018-07-22 | Outpatient (CLI) | payer MEDICARE ==
[2018-07-22 10:05] LABS: Anion Gap 6 mmol/L; Blood Urea Nitrogen 12 mg/dL (9-20); Carbon Dioxide 27 mmol/L (22-30); Chloride 98 mmol/L (98-107); Potassium 4.9 mmol/L (3.5-5.1); Sodium 131 mmol/L (137-145)
[2018-07-22 12:22] LABS: Creatinine,Urine Random 82.8 mg/dL
== END | disposition home or self-care (01) ==
LOC: LABWHC1 09:21
PROVIDERS: ATTEND Internal Medicine Nephrology
DX: N17.9 Acute kidney failure, unspecified (principal)
CPT/HCPCS: 36415; 80051; 82565; 82570; 83935; 84300; 84520

== ENCOUNTER 2018-09-01 08:40 | Day surgery (SDC) | payer MEDICARE ==
[2018-08-27 12:52] VITALS: BMI 34.8
[~2018-09-01 08:40] MED LIST: LACTATED RINGERS 1,000 ML IV SCH
[2018-09-01 09:04] VITALS: TEMP 96.6
[2018-09-01] MEDS ORDERED: LIDOCAINE 1% 20 ML VIAL (10MG/ML) FOR IV START SQ ONE (09:10)
[2018-09-01] MEDS ORDERED: PROPOFOL 10 MG/ML 20 ML VIAL IV ONE (09:38)
[2018-09-01] MEDS ORDERED: LIDOCAINE 1% INJ 10MG/ML (20 ML MDV) ONE (09:38)
[2018-09-01 10:13] VITALS: PULSE 83; RESP 20
--- NOTE | 2018-09-01 10:15 | P.PCN ---
Date of Procedure: 09/01/18 Procedure(s) Performed: Procedure: Total colonoscopy. Preoperative diagnosis: Positive occult blood in the stools. Postoperative diagnosis: Diverticulosis with no evidence of acute diverticulitis , strictures, polyps or cancer. Preparation: HalfLytely prep. Sedation: Was provided by anesthesia. Brief clinical history: The patient is a 68-year-old male who is scheduled for this evaluation because of finding of blood in his stools on a screening exam. He has no abdominal complaints, bleeding or overt anemia. He did have a brief episode of nausea that lasted several days and has lost weight but this has since improved. His last colonoscopy was 7 or 8 years ago. Procedure: With the patient on his left lateral decubitus position and after informed consent and adequate sedation, the perianal area was inspected and it did not show any fissures or fistulas. He were no masses felt on digital rectal examination. The Olympus CFQ 160L video colonoscope was then inserted in the rectum in the usual fashion and advanced to the cecum. There was significant diverticular disease in the sigmoid and left side and occasional diverticular orifice was seen on the right side and around the hepatic flexure but there was no evidence of acute diverticulitis or strictures. The mucosa appeared healthy. No polyps or tumors were seen. I retroflexed the endoscope in the rectum before the endoscope was withdrawn. Low-grade internal hemorrhoids were noted with no evidence of. The patient tolerated the procedure well. Plan: The patient was reassured. Discussed dietary measures. Consideration can be given for an upper endoscopy especially if he has upper GI complaints or anemia in the future. He will follow up with you as planned and I will be happy to see in the office if needed.
[2018-09-01 10:32] VITALS: BP 150/97
== END 2018-09-01 10:46 | disposition home or self-care (01) ==
LOC: ORWHC2ENDO 08:40
DX: K57.30 Diverticulosis of large intestine without perforation or abscess without bleeding (principal); K64.8 Other hemorrhoids; I48.91 Unspecified atrial fibrillation; K92.2 Gastrointestinal hemorrhage, unspecified; J44.9 Chronic obstructive pulmonary disease, unspecified; M19.90 Unspecified osteoarthritis, unspecified site; F17.210 Nicotine dependence, cigarettes, uncomplicated; I11.0 Hypertensive heart disease with heart failure; I50.9 Heart failure, unspecified; Z79.82 Long term (current) use of aspirin; Z79.891 Long term (current) use of opiate analgesic; Z79.811 Long term (current) use of aromatase inhibitors; Z79.899 Other long term (current) drug therapy; Z79.1 Long term (current) use of non-steroidal anti-inflammatories (NSAID)
CPT/HCPCS: 45378; J2001; J2704

== ENCOUNTER → 2018-12-30 | Outpatient (CLI) | payer MEDICARE ==
[2018-12-30 20:46] LABS: Anion Gap 9.9 mmol/L (4.00-12.00); Carbon Dioxide 36.1 mmol/L (21.6-31.8)
== END | disposition home or self-care (01) ==
LOC: LABWHC1 13:18
PROVIDERS: ATTEND Nurse Practitioner Adult Health
DX: I10 Essential (primary) hypertension (principal)
CPT/HCPCS: 36415; 80048; 83735

== ENCOUNTER → 2019-01-12 | Outpatient (CLI) | payer MEDICARE ==
[2019-01-13 05:00] LABS: Anion Gap 12.6 mmol/L (4.00-12.00); Calcium 10.1 mg/dL (8.7-10.3); Carbon Dioxide 30.4 mmol/L (21.6-31.8); Potassium 4.6 mmol/L (3.5-5.5)
== END | disposition home or self-care (01) ==
LOC: LABWHC1 17:37
PROVIDERS: ATTEND Nurse Practitioner Adult Health
DX: E87.1 Hypo-osmolality and hyponatremia (principal)
CPT/HCPCS: 36415; 80048

== ENCOUNTER 2019-12-07 10:46 | Day surgery (SDC) | payer MEDICARE ==
[2019-12-02 15:47] VITALS: BMI 34.8
[~2019-12-07 10:46] MED LIST changes: +ALPRAZolam 0.25 MG TAB PO PRN; +ALPRAZolam 0.5 MG TAB PO PRN; +ASPIRIN 325 MG TAB PO STA; +ATORVASTATIN 80 MG TAB PO STA; -LACTATED RINGERS 1,000 ML IV SCH; +NITROGLYCERIN SL TABS 0.4 MG TAB SUBLINGUAL PRN; +SODIUM CHLORIDE 0.9% 1,000 ML in EMPTY BAG 1 BAG IV ONE
[2019-12-07] MEDS ORDERED: HYDROcodone/APAP 7.5-325MG 1 EACH TAB ONE (11:11)
[2019-12-07 11:34] LABS: Glucose,Whole Blood 101 mg/dL (75-99)
[2019-12-07 11:39] LABS: Basophils # (A) 0.1 k/uL (0-0.2); Basophils % (A) 1 %; Eosinophils # (A) 0.2 k/uL (0-0.7); Eosinophils % (A) 2 %; HCT 50.8 % (39.0-53.0); HGB 16.6 gm/dL (13.0-17.5); Lymphocytes # (A) 1.8 k/uL (1.0-4.8); Lymphocytes % (A) 20 %; MCH 30.3 pg (25.0-35.0); MCHC 32.6 g/dL (31.0-37.0); MCV 92.9 fL (80.0-100.0); Mean Platelet Volume 7.7; Monocytes # (A) 0.7 k/uL (0-1.0); Monocytes % (A) 8 %; Neutrophils # (A) 5.8 k/uL (1.3-7.7); Neutrophils % (A) 66 %; Platelet Count 321 k/uL (150-450); RBC 5.47 m/uL (4.30-5.90); RDW 13.7 % (11.5-15.5); WBC 8.8 k/uL (3.8-10.6)
[2019-12-07 11:40] VITALS: TEMP 97.9
[2019-12-07 11:46] LABS: African American GFR (CKD) >90 (>60 ml/min/1.73 sqM); Anion Gap 8 mmol/L; Blood Urea Nitrogen 18 mg/dL (9-20); Calcium 9.9 mg/dL (8.4-10.2); Carbon Dioxide 30 mmol/L (22-30); Chloride 100 mmol/L (98-107); Glucose 103 mg/dL (74-99); Non-African American GFR(CKD) >90 (>60 ml/min/1.73 sqM); Sodium 138 mmol/L (137-145)
[2019-12-07 11:50] LABS: Potassium 5.3 mmol/L (3.5-5.1)
[2019-12-07] MEDS ORDERED: VERAPAMIL 2.5 MG/ML 2 ML AMP ONE (13:42)
[2019-12-07] MEDS ORDERED: LIDOCAINE 1% INJ 10MG/ML (20 ML MDV) ONE (13:42)
[2019-12-07] MEDS ORDERED: LIDOCAINE 1% INJ 10MG/ML (20 ML MDV) SQ ONE (14:00)
[2019-12-07] MEDS ORDERED: MIDAZOLAM 2 MG/2 ML VIAL IV ONE (14:00)
[2019-12-07] MEDS ORDERED: HEPARIN SODIUM 1,000 UN/ML (10ML VL) ONE (14:02)
[2019-12-07] MEDS: VERAPAMIL SYRINGE (5 MG/10 ML) INTRAARTER ONE ×2 (14:03→14:12)
[2019-12-07] MEDS ORDERED: HEPARIN SODIUM 1,000 UN/ML (10ML VL) IV ONE (14:04)
[2019-12-07] MEDS ORDERED: IOPAMIDOL-370 125ML BTL INJ ONE (14:12)
[2019-12-07] MEDS ORDERED: RX INFO: IV CONTRAST WAS GIVEN 1 EACH MISC MISCELLANE PRN (14:16)
[2019-12-07] MEDS ORDERED: SODIUM CHLORIDE 0.9% 1,000 ML IV SCH (14:30)
--- NOTE | 2019-12-07 14:37 | CC ---
CARDIAC CATHETERIZATION REPORT DATE OF SERVICE: 12/07/2017 PERFORMING PHYSICIAN: Yazan Gomez MD. PROCEDURE PERFORMED: 1. Selective right and left coronary angiogram. 2. Left heart catheterization. INDICATION: This is a pleasant 69-year-old gentleman with history of hypertension, dyslipidemia, coronary artery disease, as well as multiple comorbid conditions, who continues to have shortness of breath with exertion. He underwent myocardial perfusion imaging stress test and that revealed anterior ischemia. Because of that, a heart catheterization was advised. APPROACH: Right radial artery. COMPLICATION: None. LEVEL OF SEDATION: Moderate with sedation length of 16 minutes. PROCEDURE DESCRIPTION: After obtaining an informed consent, the patient was brought to the cardiac manufacturing lab technician. The right radial artery was cannulated using micropuncture technique and a micropuncture wire passed easily, then I placed a 6-Zambian sheath in the right radial artery. After that, I gave the patient 2 mg of verapamil IA and 10,000 units of heparin IV. Selective right and left coronary angiogram were performed using JR4 and JL3.5 catheters. Left heart catheterization was performed using 5-Zambian pigtail catheter. The procedure was completed without any complication. SELECTIVE CORONARY ANGIOGRAM: 1. The right coronary artery is a large caliber vessel, it is a dominant vessel as well and also aneurysmal vessel. The RCA distally occluded just before the bifurcation into PDA and PLV branches. It does seems to be filled by collateral. There was significant sluggish flow in the right coronary artery. 2. The left main is angiographically normal. It bifurcates into left circumflex and left anterior descending artery. 3. The left circumflex is a large caliber vessel as well. The left circumflex in the proximal portion appeared to be normal but in the mid gives rise into three obtuse marginal branches appeared to be angiographically normal and distally appeared to be normal. 4. The LAD is a large caliber vessel. The LAD does have mild disease in the proximal portion. 5. HEMODYNAMICS: The LVEDP was 4 mmHg without significant gradient across the aortic valve. CONCLUSION: 1. 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 2. Mild disease involving the left coronary system. POSTPROCEDURE MANAGEMENT: 1. Giving the absence of any chest pain or chest discomfort as well as the ischemia not in the distribution of the RCA, I advise maximized medical treatment and follow up with the patient. 2. The patient is going to be discharged home. I will follow up with him as an outpatient. SHANELL / SARA: [id number] /
[2019-12-07 15:49] VITALS: BP 90/62; PULSE 94; RESP 16
== END 2019-12-07 17:53 | disposition home or self-care (01) ==
LOC: CATHCVL 10:46
PROVIDERS: ATTEND Internal Medicine Interventional Cardiology
DX: I25.41 Coronary artery aneurysm (principal); I25.110 Atherosclerotic heart disease of native coronary artery with unstable angina pectoris; I25.82 Chronic total occlusion of coronary artery; I11.0 Hypertensive heart disease with heart failure; I50.32 Chronic diastolic (congestive) heart failure; I42.9 Cardiomyopathy, unspecified; I27.20 Pulmonary hypertension, unspecified; I44.7 Left bundle-branch block, unspecified; F17.210 Nicotine dependence, cigarettes, uncomplicated; E78.5 Hyperlipidemia, unspecified; E78.00 Pure hypercholesterolemia, unspecified; J44.9 Chronic obstructive pulmonary disease, unspecified; Z79.82 Long term (current) use of aspirin; Z79.01 Long term (current) use of anticoagulants; Z79.899 Other long term (current) drug therapy
CPT/HCPCS: 93458; 80048; 85025; C1769 ×2; C1894; J2250; J2001; J1644; Q9967

== ENCOUNTER 2023-12-12 09:51 | Day surgery (SDC) | payer MEDICARE ==
[2023-12-11 09:13] VITALS: BMI 36.2
[~2023-12-12 09:51] MED LIST changes: -ALPRAZolam 0.5 MG TAB PO PRN; +ASPIRIN 325 MG TAB PO ONE; -ASPIRIN 325 MG TAB PO STA; -ATORVASTATIN 80 MG TAB PO STA; +HEPARIN SODIUM,PORCINE (1 ML) 2,500 UNIT in SODIUM CHLORIDE 0.9% 250 ML IRRIGATION PRN; +HEPARIN SODIUM,PORCINE 10,000 UNIT in SODIUM CHLORIDE 0.9% 1,000 ML IRRIGATION PRN; -SODIUM CHLORIDE 0.9% 1,000 ML in EMPTY BAG 1 BAG IV ONE; +SODIUM CHLORIDE 0.9% 1,000 ML in EMPTY BAG 1 BAG IV SCH
[2023-12-12] MEDS ORDERED: SODIUM CHLORIDE 0.9% 1,000 ML IV ONE ×2 (10:13→12:52)
[2023-12-12 10:58] VITALS: RESP 16; TEMP 97.9
[2023-12-12 11:17] LABS: African American GFR (CKD) >90 (>60 ml/min/1.73 sqM); Anion Gap 7 mmol/L; Blood Urea Nitrogen 25 mg/dL (9-20); Calcium 9.9 mg/dL (8.4-10.2); Carbon Dioxide 29 mmol/L (22-30); Chloride 97 mmol/L (98-107); Glucose 111 mg/dL (74-99); Non-African American GFR(CKD) 87 (>60 ml/min/1.73 sqM); Potassium 4.5 mmol/L (3.5-5.1); Sodium 133 mmol/L (137-145)
[2023-12-12] MEDS ORDERED: VERAPAMIL 2.5 MG/ML 2 ML AMP ONE (12:06)
[2023-12-12] MEDS ORDERED: LIDOCAINE 1% INJ 10MG/ML (20 ML MDV) ONE (12:06)
[2023-12-12] MEDS ORDERED: HEPARIN SODIUM 1,000 UN/ML (10ML VL) ONE (12:39)
[2023-12-12] MEDS ORDERED: fentaNYL (PF) 50 MCG/ML 2 ML AMP ONE (12:39)
[2023-12-12] MEDS ORDERED: MIDAZOLAM 2 MG/2 ML VIAL IVP ONE (12:50)
[2023-12-12] MEDS ORDERED: LIDOCAINE 1% INJ 10MG/ML (20 ML MDV) SQ ONE (12:52)
[2023-12-12] MEDS ORDERED: VERAPAMIL SYRINGE (5 MG/10 ML) INTRAARTER ONE (12:53)
[2023-12-12] MEDS ORDERED: FLUMAZENIL 0.1 MG/ML 5 ML VIAL IVP ONE ×2 (12:56→12:57)
[2023-12-12] MEDS ORDERED: HEPARIN SODIUM 1,000 UN/ML (10ML VL) IV ONE (12:59)
[2023-12-12] MEDS ORDERED: IOPAMIDOL-370 100ML BTL INJ ONE (13:02)
[2023-12-12] MEDS ORDERED: RX INFO: IV CONTRAST WAS GIVEN 1 EACH MISC MISCELLANE PRN (13:05)
--- NOTE | 2023-12-12 13:08 | P.PCN ---
Date of Procedure: 12/12/23 Operative Findings: CARDIAC CATHETERIZATION PERFORMING PHYSICIAN: Yazan Gomez MD, RPVI PROCEDURE PERFORMED: 1. Selective right and left coronary angiogram 2. Left heart catheterization 3. Ultrasound-guided access of the right radial artery INDICATION: Cardiomyopathy COMPLICATION: None APPROACH: Right radial artery LEVEL OF SEDATION: Moderate with a sedation length of and minutes PROCEDURE DESCRIPTION: After obtaining an informed consent, the patient was brought to cardiac manager lab. Local anesthesia was performed using lidocaine subcutaneously. The right radial artery was cannulated using Seldinger technique, the guidewire passed easily, following that we advanced a 5-Qatari sheath dilator assembly, the wire and dilator were removed and sheath was flushed. Following that, 2 mg of verapamil along with 5000 unit heparin were given. Selective right and left coronary angiogram using a 6-Qatari JR4 and JL 3.5 catheters. Following that we did left heart catheterization using 6-Qatari pigtail catheter. The procedure was completed there was no complication. SELECTIVE CORONARY ANGIOGRAM: The right coronary artery: Large caliber vessel and a dominant vessel. The RCA is chronically occluded in the distal portion and fills by contralateral collaterals Left main: Is normal. Bifurcates into an LCx and LAD The left circumflex: Large caliber vessel nondominant vessel. The LCx is angiographically normal and gives rise into the first and second and third obtuse marginal branches all appeared to be angiographically normal The left anterior descending artery: Large caliber vessel. The LAD appeared to have mild disease only. HEMODYNAMICS: The LVEDP was 10 mmHg was no significant gradient was identified across aortic valve CONCLUSION: 1. GUTTER MOUTH CUTTER of the RCA 2. Normal left-sided filling pressure POSTPROCEDURE MANAGEMENT: Medical treatment
[2023-12-12] MEDS ORDERED: SODIUM CHLORIDE 0.9% 1,000 ML IV SCH (13:15)
[2023-12-12 16:58] VITALS: BP 101/59; PULSE 89
== END 2023-12-12 17:03 | disposition home or self-care (01) ==
LOC: CATHCVL 09:51
PROVIDERS: ATTEND Internal Medicine Interventional Cardiology
DX: I25.10 Atherosclerotic heart disease of native coronary artery without angina pectoris (principal); I25.82 Chronic total occlusion of coronary artery; I42.9 Cardiomyopathy, unspecified; E78.5 Hyperlipidemia, unspecified; F17.210 Nicotine dependence, cigarettes, uncomplicated; I11.0 Hypertensive heart disease with heart failure; I50.32 Chronic diastolic (congestive) heart failure; I48.19 Other persistent atrial fibrillation; Z79.01 Long term (current) use of anticoagulants; Z79.899 Other long term (current) drug therapy
CPT/HCPCS: 93458; 80048; C1769; C1894; J2250; J2001; J1644; Q9967

== ENCOUNTER → 2024-03-06 | Outpatient (CLI) | payer MEDICARE ==
--- NOTE | 2024-03-09 11:14 | US ---
EXAMINATION TYPE: US extremity nonvasc mass RT DATE OF EXAM: 03/06/2024 COMPARISON: NONE CLINICAL INDICATION: Male, 73 years old with history of [id number] JOINT DISORDER; Patient states having a right wrist heart cath in November. In January, palpable visible lumps appeared over night. TECHNIQUE: Multiple sonographic images taken of patients area of concern at right distal forearm/wri st. FINDINGS: Multiple images taken. Complex fluid collections seen = 6.1 x 2.4 x 1.5 cm in the distal right forearm. IMPRESSION: Irregular shaped lesion in the distal forearm possibly relating to hematoma or seroma.
== END | disposition home or self-care (01) ==
LOC: RADUSWWP 10:25
PROVIDERS: ATTEND Family Medicine
DX: M89.8X3 Other specified disorders of bone, forearm (principal); M25.831 Other specified joint disorders, right wrist

== ENCOUNTER → 2024-11-02 | Outpatient (CLI) | payer MEDICARE ==
--- NOTE | 2024-11-02 10:37 | US ---
EXAMINATION TYPE: US arterial LE multi level DATE OF EXAM: 11/02/2024 10:20 AM COMPARISONS: None. CLINICAL INDICATION: Male, 74 years old with history of [id number] ABN RESULT OF OTHER CARDIOVASCULAR FUNC TION STUDY; numbness in feet for 6 years TECHNIQUE: Systolic pressures were taken of the upper and lower extremity arteries with ankle-brachia l indices and toe brachial indices calculated bilaterally. History of: Smoker: previous Hypertension: y Diabetic: n Hyperlipidemia: y TIA/CVA: n Previous Vascular Surgery: n CAD: n HI: n Vascular Ulcers: n Claudication: n Gangrene: n FINDINGS: Doppler Waveforms: Right: Multiphasic Left: Multiphasic Brachial Artery systolic pressure: Right: 103 Left: 106 Posterior Tibial artery systolic pressure: Right: 122 Left: 120 Dorsalis Pedis artery systolic pressure: Right: 102 - went up to calf level and pressure was 126 Left: 116 Toe artery systolic pressure: Right: 99 Left: 89 Ankle-Brachial Indices: Right: 1.1 Left: 1.1 (Vessel hardening > 1.4; Normal 0.9 - 1.4, Moderate 0.7 - 0.9, Severe 0.5-0.7) Toe Brachial Indices: Right: 0.9 Left: 0.8 (Normal > 0.6; Mild 0.35 - 0.59, Moderate 0.12 - 0.34, Severe <0.12) IMPRESSION: Normal ankle-brachial brachial indices bilaterally. [facility], , 11/02/2024 10:35 AM
== END | disposition home or self-care (01) ==
LOC: RADUSWWP 09:41
PROVIDERS: ATTEND Family Medicine
DX: R94.31 Abnormal electrocardiogram [ECG] [EKG] (principal)
CPT/HCPCS: 93923